=== PATIENT | male | born 1985 | race Native Hawaiian/Other Pacific Islander ===

== ENCOUNTER 2018-07-29 21:49 | Emergency (ER) | payer BC ==
[2018-07-29 22:34] VITALS: RESP 18
--- NOTE | 2018-07-29 23:22 | ED PDOC ---
HPI: Male Pain Chief Complaint (Provider): testicular pain History Per: Patient History/Exam Limitations: no limitations Onset/Duration Of Symptoms: Days (3) Current Symptoms Are (Timing): Still Present Quality Of Discomfort: "Pain" Additional Complaint(s): 33 y/o male presents for evaluation of right testicular pain x 3 days. Associated swelling. Patient states pain worse when standing, relieved when laying down. Associated right groin pain and subjective fevers. Denies vomiting, cough, chest pain, abdominal pain, urinary symptoms, penile pain/discharge. <Merissa Mayes - Last Filed: 07/30/18 03:12> <Brandon Dorado - Last Filed: 07/30/18 05:53> Time Seen by Provider: 07/29/18 22:46 Chief Complaint (Nursing): Abdominal Pain Past Medical History Reviewed: Historical Data, Nursing Documentation, Vital Signs Vital Signs: Last Vital Signs Temp 99.1 F 07/29/18 22:30 Pulse 123 H 07/29/18 22:30 Resp 18 07/29/18 22:30 BP 114/73 07/29/18 22:30 Pulse Ox 97 07/29/18 22:30 - Medical History PMH: No Chronic Diseases - Surgical History Surgical History: No Surg Hx - Family History Family History: States: No Known Family Hx <Merissa Mayes - Last Filed: 07/30/18 03:12> Vital Signs: Last Vital Signs Temp 98.3 F 07/30/18 03:53 Pulse 101 H 07/30/18 03:53 Resp 18 07/30/18 03:53 BP 101/66 07/30/18 03:53 Pulse Ox 99 07/30/18 03:53 <Brandon Dorado - Last Filed: 07/30/18 05:53> - Home Medications Home Medications: Ambulatory Orders Medication Instructions Recorded Levofloxacin [Levaquin] 500 mg PO DAILY #9 tablet 07/30/18 RX: Ibuprofen [Motrin Tab] 1 tab PO Q6 PRN #20 tab 07/30/18 - Allergies Allergies/Adverse Reactions: Allergies Allergy/AdvReac Type Severity Reaction Status Date / Time No Known Allergies Allergy Verified 07/29/18 23:19 Review of Systems ROS Statement: Except As Marked, All Systems Reviewed And Found Negative Genitourinary Male: Positive for: Scrotal Pain (right) <Merissa Mayes C - Last Filed: 07/30/18 03:12> Physical Exam - Reviewed Nursing Documentation Reviewed: Yes Vital Signs Reviewed: Yes - Physical Exam Appears: Positive for: Well, Non-toxic, No Acute Distress Head Exam: Positive for: ATRAUMATIC, NORMAL INSPECTION, NORMOCEPHALIC Skin: Positive for: Normal Color Eye Exam: Positive for: Normal appearance ENT: Positive for: Normal ENT Inspection Cardiovascular/Chest: Positive for: Regular Rate, Rhythm Respiratory: Positive for: Normal Breath Sounds Gastrointestinal/Abdominal: Positive for: Normal Exam, Bowel Sounds, Soft. Negative for: Tenderness Male Genital Exam: Positive for: inguinal tenderness (right), scrotum tenderness (R) (with +swelling), testicular tenderness (R) (upper aspect. + right Prehn's ), other (exam tank cooper Jeanie Jara RN). Negative for: epididymal tenderness, urethral discharge Back: Positive for: Normal Inspection Extremity: Positive for: Normal ROM Neurologic/Psych: Positive for: Alert, Oriented (x3) <Merissa Mayes C - Last Filed: 07/30/18 03:12> - Laboratory Results Result Diagrams: 07/29/18 23:34 07/29/18 23:34 - ECG O2 Sat by Pulse Oximetry: 97 - Progress ED Course And Treament: -cbc -cmp -urinalysis -urine c&s -gc/chlamydia -testes u/s Ultrasound of the testicles. Indication: Right testicular pain and swelling for 3 days, fever and swelling. Technique: Real-time ultrasound images with evaluation. Findings: Normal right testicle measuring 3.1x3x1.9 cm. Homogeneous right testicle. Normal right testicular flow. Increase in the size of the right epididymis with increased vascularity on color Doppler exam. It measures 4x1.2 cm. Left testicle is normal measuring 3.6x2.0x1.6 cm. Normal left epididymis. Impression: Acute right epididymitis IV rocephin, PO Levaquin given in ED Patient educated on findings, discharged with rx Levaquin, Naproxen Advised follow up with Urologist within 2-3 days Ice, scrotal support Return precautions given <Merissa Mayes C - Last Filed: 07/30/18 03:12> - Laboratory Results Result Diagrams: 07/29/18 23:34 07/29/18 23:34 Lab Results: Total Bilirubin 1.0 mg/dl (0.2-1.3) 07/29/18 23:34 AST 14 U/L (17-59) L 07/29/18 23:34 ALT 18 U/L (21-72) L 07/29/18 23:34 Alkaline Phosphatase 133 U/L (38-126) H 07/29/18 23:34 Total Protein 8.3 G/DL (6.3-8.2) H 07/29/18 23:34 Albumin 4.6 g/dL (3.5-5.0) 07/29/18 23:34 Globulin 3.7 gm/dL (2.2-3.9) 07/29/18 23:34 Albumin/Globulin Ratio 1.2 (1.0-2.1) 07/29/18 23:34 Urine Color Sybil (YELLOW) 07/30/18 01:00 Urine Clarity Turbid (Clear) 07/30/18 01:00 Urine pH 6.0 (5.0-8.0) 07/30/18 01:00 Ur Specific [place] 1.038 (1.003-1.030) H 07/30/18 01:00 Urine Protein >=500 mg/dL (NEGATIVE) 07/30/18 01:00 Urine Glucose (UA) >=500 mg/dL (NEGATIVE) 07/30/18 01:00 Urine Ketones 80 mg/dL (NEGATIVE) 07/30/18 01:00 Urine Blood Moderate (NEGATIVE) 07/30/18 01:00 Urine Nitrate Positive (NEGATIVE) H 07/30/18 01:00 Urine Bilirubin Moderate (NEGATIVE) 07/30/18 01:00 Urine Urobilinogen 4.0 mg/dL (0.2-1.0) 07/30/18 01:00 Ur Leukocyte Esterase Mod Brooke/uL (Negative) 07/30/18 01:00 Urine RBC (Auto) 55 /hpf (0-3) H 07/30/18 01:00 Urine Microscopic WBC 1622 /hpf (0-5) H 07/30/18 01:00 Ur Squamous Epith Cells 1 /hpf (0-5) 07/30/18 01:00 Urine Bacteria Occ (<OCC) H 07/30/18 01:00 <Brandon Dorado - Last Filed: 07/30/18 05:53> Disposition - Patient ED Disposition Is Patient to be Admitted: No Counseled Patient/Family Regarding: Studies Performed, Diagnosis, Need For Followup, Rx Given - Disposition Disposition Time: 03:13 <Merissa Mayes - Last Filed: 07/30/18 03:12> <Brandon Dorado - Last Filed: 07/30/18 05:53> - Clinical Impression Clinical Impression: Acute epididymitis - Disposition Referrals: [facility] [Outside] Armando iPzano MD [Medical Doctor] - Condition: IMPROVED Prescriptions: RX: Ibuprofen [Motrin Tab] 1 tab PO Q6 PRN #20 tab PRN Reason: Pain, Moderate (4-7) Levofloxacin [Levaquin] 500 mg PO DAILY #9 tablet Instructions: Epididymitis Forms: [facility] ([employer]), [facility] ED School/Work Excuse
[2018-07-29] MEDS: Sodium Chloride 0.9% 1,000 ML IV STA (23:38)
[2018-07-29 23:43] LABS: BASO % 0.2 % (0.0-2.0); EOS % 0.1 % (0.0-4.0); HEMOGLOBIN 13.5 g/dL (12.0-18.0); LYMPH % 6.4 % (20.0-40.0); MEAN CELL VOLUME 81.4 fl (80.0-94.0); MEAN CORPUSCULAR HEMOGLOBIN 26.7 pg (27.0-31.0); MEAN CORPUSCULAR HGB CONC 32.8 g/dL (33.0-37.0); MEAN PLATELET VOLUME 7.1 fl (7.2-11.7); MONO # 1.4 K/uL (0.0-0.8); MONO % 8.5 % (0.0-10.0); NEUT # 13.6 K/uL (1.8-7.0); NEUT % 84.8 % (50.0-75.0); PLATELET COUNT 206 K/uL (130-400); RBC 5.06 Mil/uL (4.40-5.90); RED CELL DISTRIBUTION WIDTH 13.5 % (11.5-14.5)
[2018-07-29 23:52] LABS: ALB/GLOB RATIO 1.2 (1.0-2.1); ALBUMIN 4.6 g/dL (3.5-5.0); ALT/SGPT 18 U/L (21-72); AST/SGOT 14 U/L (17-59); BLOOD UREA NITROGEN 11 mg/dl (9-20); CALCIUM 9.5 mg/dL (8.4-10.2); GFR NON-AFRICAN AMERICAN > 60
[2018-07-30] MEDS ORDERED: cefTRIAXone (Rocephin) 1 gm Inj ONE (01:25)
[2018-07-30 01:28] LABS: SQUAMOUS EPITHIAL 1 /hpf (0-5); URINE BACTERIA OCC (<OCC); URINE BILIRUBIN MODERATE (NEGATIVE); URINE BLOOD MODERATE (NEGATIVE); URINE CLARITY TURBID (Clear); URINE COLOR AMBER (YELLOW); URINE GLUCOSE (UA) >=500 mg/dL (NEGATIVE); URINE LEUKOCYTE ESTERASE MOD Leu/uL (Negative); URINE PROTEIN >=500 mg/dL (NEGATIVE)
[2018-07-30 01:46] LABS: ANISOCYTOSIS SLIGHT; BANDS 2 % (0-2); LYMPHOCYTE 10 % (20-50); MONOCYTE 6 % (0-10); MYELOCYTE 1 % (0-0); NEUTROPHIL 81 % (42-75); PLATELET ESTIMATE NORMAL (NORMAL); TOTAL CELLS COUNTED 100
[2018-07-30 01:47] LABS: LARGE PLATELETS PRESENT; SPHEROCYTES SLIGHT
[2018-07-30] MEDS: levoFLOXacin 500 MG TAB PO STA (01:50)
[2018-07-30 02:24] VITALS: BP 101/66; PULSE 101; TEMP 98.3
[2018-07-30] MEDS: Sodium Chloride 0.9% 1,000 ML IV STA (03:17)
[2018-07-30 03:54] VITALS: O2SAT 99
--- NOTE | 2018-07-30 14:14 | US ---
Date of service: 07/29/2018 HISTORY: right testicular pain/swelling TECHNIQUE: Realtime sonography through the scrotum with color and doppler flow. COMPARISON: None Available. FINDINGS: RIGHT TESTICLE: Measures 1.9 x 3 x 3.1 cm. Normal echotexture and flow. RIGHT EPIDIDYMIS: Epididymal head measures 1.5 x 2 x 4 cm. Markedly enlarged, heterogeneous right epididymis with increased flow consistent with acute epididymitis. LEFT TESTICLE: Measures 1.6 x 2.9 x 3.6 cm. Normal echotexture and flow. LEFT EPIDIDYMIS: Epididymal head measures 0.9 x 2.4 cm. Grossly unremarkable appearance with normal flow. HYDROCELE: None. VARICOCELE: None. OTHER FINDINGS: None. IMPRESSION: Markedly enlarged, heterogeneous right epididymal head. Intense hypervascularity. Findings consistent with acute epididymitis. Negative study for testicular torsion, mass or other pathologic process. Concordant findings (preliminary report) provided by [facility] [facility].
== END 2018-07-30 03:16 | disposition home or self-care (01) ==
LOC: H.ER 21:49
DX: N45.1 Epididymitis (principal)
CPT/HCPCS: 80053; 81003; 83605; 85025; 87040; 87086; 87491; 87591; 93975; 96361; 96365; 96375; 99283; J0696; J1885; J7030

== ENCOUNTER 2018-08-22 20:51 | Inpatient (IN) | payer BC ==
[2018-08-22] MEDS ORDERED: Piperacillin/Tazobact 3.375 GM in Sodium Chloride 0.9% 100 ML IV STA (21:08)
[2018-08-22] MEDS ORDERED: Sodium Chloride 0.9% 1,000 ML IV STA (21:09)
[2018-08-22] MEDS ORDERED: Lactated Ringer's 1,000 ML IV STA ×2 (21:10)
--- NOTE | 2018-08-22 21:21 | ED PDOC ---
HPI: General Adult Time Seen by Provider: 08/22/18 21:20 Chief Complaint (Nursing): Male Genitourinary Chief Complaint (Provider): genital discomfort History Per: Patient (33 y/o male here h/o epididymitis ongoing despite treatment with Levaquin 1 month ago and then bactrim 10 days ago. States he has 5 tablets left but notes increased swelling and pain in different region. NO fevers/chills. Was seen by Dr. Castro urology 10 days ago.) Past Medical History Reviewed: Historical Data, Nursing Documentation, Vital Signs Vital Signs: Last Vital Signs Temp 98.1 F 08/22/18 20:53 Pulse 120 H 08/22/18 20:53 Resp 16 08/22/18 20:53 BP 125/46 L 08/22/18 20:53 Pulse Ox 100 08/22/18 20:53 - Family History Family History: States: No Known Family Hx - Home Medications Home Medications: Ambulatory Orders Medication Instructions Recorded Ibuprofen [Motrin Tab] 1 tab PO PRN PRN 08/22/18 Sulfamethoxazole/Trimethoprim 1 each PO BID 08/22/18 [Sulfamethoxazole-Tmp Ss Tablet] - Allergies Allergies/Adverse Reactions: Allergies Allergy/AdvReac Type Severity Reaction Status Date / Time No Known Allergies Allergy Verified 08/22/18 20:56 Review of Systems ROS Statement: Except As Marked, All Systems Reviewed And Found Negative Genitourinary Male: Positive for: Scrotal Pain Physical Exam - Reviewed Nursing Documentation Reviewed: Yes Vital Signs Reviewed: Yes - Physical Exam Appears: Positive for: Well, Non-toxic, No Acute Distress Head Exam: Positive for: ATRAUMATIC, NORMAL INSPECTION, NORMOCEPHALIC Skin: Positive for: Normal Color, Warm, DRY Eye Exam: Positive for: EOMI, Normal appearance, PERRL ENT: Positive for: Normal ENT Inspection Neck: Positive for: Normal, Painless ROM Cardiovascular/Chest: Positive for: Regular Rate, Rhythm Respiratory: Positive for: CNT, Normal Breath Sounds Gastrointestinal/Abdominal: Positive for: Normal Exam, Soft Male Genital Exam: Positive for: other (erythema noted generalized perineal region involving inguinal fold. (+) moderate scrotal/perineal swelling. Small region of fluctuance noted with no drainage.) Back: Positive for: Normal Inspection Extremity: Positive for: Normal ROM Neurological/Psych: Positive for: Awake, Alert, Normal Tone - Laboratory Results Result Diagrams: 08/22/18 21:25 08/22/18 21:25 - ECG O2 Sat by Pulse Oximetry: 100 - Progress ED Course And Treament: zosyn 3.375gm iv Vancomycin 1 gm iv morphine 2 mg iv LR ordered d/w surg resident d/w Dr. Castro who states probably epididymitis with scrotal abscess. Dr. Castro out of town unable to see patient in ED today. d/w Dr. Vogt. We will evaluate with US and CT for abscess/cellulitis and r/o Fornier's gangrene. Paitent to be NPO after midnight and go to OR tomorrow. Lactate noted 2.9. Repeat lactate ordered for 3 hours. Elevated BS 330. Repeat accucheck ordered after hydration. Medical Decision Making Medical Decision Makin:09 CT Abdomen & Pelvis w/contrast FINDINGS: LUNG BASES: There are clustered reticulonodular opacities in the right lower lobe suggesting an infectious process. LIVER: Unremarkable. GALLBLADDER AND BILE DUCTS: The gallbladder appears within normal limits. No radioopaque gallstones are seen. No biliary ductal dilatation is evident. PANCREAS: Unremarkable. SPLEEN: The spleen is enlarged measuring 13.8 cm anteroposterior. ADRENAL GLANDS: Unremarkable. KIDNEYS, URETERS, AND BLADDER: The kidneys appear within normal limits. There is no hydronephrosis or hydroureter. No urinary calculi are seen. STOMACH AND BOWEL: Unremarkable appearance of the stomach and bowel. No evidence of bowel obstruction. No evidence suggesting enteritis or colitis. APPENDIX: Normal appendix is present in the right lower quadrant. PERITONEUM: No free fluid. No free air. LYMPH NODES: No lymphadenopathy is evident. REPRODUCTIVE: There is a complex, multiloculated fluid collection at the anterior scrotum. This may represent hydrocele. However, it is difficult to exclude the possibility of scrotal abscess. Please correlate clinically and if indicated this can be further evaluated with scrotal sonogram. There is substantial fluid in the perineal region which may represent simple edema although concerning for scrotal cellulitis. VASCULATURE: No evidence of abdominal aortic aneurysm. BONES: Minimal degenerative spine changes. IMPRESSION: 1. There are clustered reticulonodular opacities in the right lower lobe suggesting an infectious process. 2. The spleen is enlarged measuring 13.8 cm anteroposterior. 3. There is a complex, multiloculated fluid collection at the anterior scrotum. This may represent hydrocele. However, it is difficult to exclude the possibility of scrotal abscess. Please correlate clinically and if indicated this can be further evaluated with scrotal sonogram. 4. There is substantial fluid in the perineal region which may represent simple edema although concerning for scrotal cellulitis. 5. These findings are being telephoned to the referring clinicians at the time of this interpretation. Disposition - Clinical Impression Clinical Impression: Abscess, Cellulitis, Cellulitis of scrotum, Hyperglycemia - Patient ED Disposition Is Patient to be Admitted: Yes - Disposition Disposition Time: 21:52 Condition: FAIR - Pt Status Changed To: Hospital Disposition Of: Inpatient - Admit Certification Admit to Inpatient:: After my assessment, the patient will require hospitalization for at least two midnights. This is because of the severity of symptoms shown, intensity of services needed, and/or the medical risk in this patient being treated as an outpatient.
[2018-08-22] MEDS ORDERED: Piperacillin/Tazobact 3.375 gm Inj IVPB ONE (21:37)
[2018-08-22] MEDS ORDERED: Vancomycin 1 g Inj ONE (21:38)
[2018-08-22 21:42] LABS: BASO % 0.2 % (0.0-2.0); EOS # 0.1 K/uL (0.0-0.7); EOS % 0.6 % (0.0-4.0); HEMOGLOBIN 12.6 g/dL (12.0-18.0); INR 1.2; LYMPH # 1.1 K/uL (1.0-4.3); LYMPH % 4.7 % (20.0-40.0); MEAN CELL VOLUME 79.8 fl (80.0-94.0); MEAN CORPUSCULAR HEMOGLOBIN 25.9 pg (27.0-31.0); MEAN CORPUSCULAR HGB CONC 32.4 g/dL (33.0-37.0); MEAN PLATELET VOLUME 6.4 fl (7.2-11.7); MONO # 1.4 K/uL (0.0-0.8); MONO % 6.2 % (0.0-10.0); NEUT # 20.1 K/uL (1.8-7.0); NEUT % 88.3 % (50.0-75.0); PLATELET COUNT 362 K/uL (130-400); PROTHROMBIN TIME 13.4 Seconds (9.8-13.1); RBC 4.88 Mil/uL (4.40-5.90); RED CELL DISTRIBUTION WIDTH 14.4 % (11.5-14.5); WHITE BLOOD COUNT 22.7 K/uL (4.8-10.8)
[2018-08-22 21:45] LABS: PARTIAL THROMBOPLASTIN TIME 30.2 Seconds (25.6-37.1)
[2018-08-22 22:01] LABS: ALB/GLOB RATIO 0.9 (1.0-2.1); ALBUMIN 3.7 g/dL (3.5-5.0); ALT/SGPT 42 U/L (21-72); AST/SGOT 30 U/L (17-59); BLOOD UREA NITROGEN 9 mg/dl (9-20); CALCIUM 9.5 mg/dL (8.4-10.2); GFR NON-AFRICAN AMERICAN > 60
[2018-08-22] MEDS ORDERED: Morphine 4 MG/ML VIAL IVP STA (22:05)
[2018-08-22] MEDS ORDERED: Sodium Chloride 0.9% 50 ML IV ONE (22:11)
[2018-08-22] MEDS ORDERED: Iohexol 300 100 ML IJ ONE (22:11)
[2018-08-22 22:38] LABS: BANDS 13 % (0-2); EOSINOPHIL 1 % (0-7); LYMPHOCYTE 4 % (20-50); METAMYELOCYTE 2 % (0-0); MONOCYTE 6 % (0-10); NEUTROPHIL 74 % (42-75); TOTAL CELLS COUNTED 100
[2018-08-22 22:39] LABS: PLATELET ESTIMATE NORMAL (NORMAL)
[2018-08-22 22:40] LABS: POLYCHROMIC SLIGHT; TOXIC GRANULATION PRESENT
[2018-08-22] MEDS ORDERED: Morphine 4 MG/ML VIAL ONE (23:14)
--- NOTE | 2018-08-22 23:19 | CP.PCM.CON ---
History of Present Illness - History of Present Illness History of Present Illness: General Surgery Consult Note for Dr. Watts Reason for consult: Scrotal/perineal abscess and cellulitis 33 M with no significant PMH presents to [facility] ED for complaint of increasing scrotal swelling/pain and perineal pain. Patient was seen immediately in the ED. Patient states that his symptoms began 3-4 ago. He came to the ED on 07/29 and was diagnosed with Epididymitis via US. Patient was sent home with oral antibiotics and instructed to follow up with Urology. Patient saw urologist as outpatient about a weeks later where he was given more antibiotics and pain medication. He reports that his symptom improved slightly but did not resolve and worsened over last 3 days. He noticed that he had developed severe swelling and pain in scrotum and perineum. Patient reports difficulty sleeping and sitting down because certain positions exacerbate the pain. CT abd/pelvis and Scrotal US revealed fluid collections in scrotum and perineum as well as cellulitic changes and possible hydrocele (see full report). Admits to subjective fever/chills and pain with defecation. Denies cp, SOB, abd pain, n/v/d, constipation, numbness/tingling, drainage, incontinence. PMH: denies PSH: denies ALL: NKDA Social: quit smoking 1 month ago - 10+ pack yr history, denies EtOH and illicit drug use Review of Systems - Review of Systems All systems: reviewed and no additional remarkable complaints except (as per HPI) Past Patient History - Past Social History Smoking Status: Never Smoked - PSYCHIATRIC Hx Psychophysiologic Disorder: No Hx Substance Use: No - SURGICAL HISTORY Hx Surgeries: No - ANESTHESIA Hx Anesthesia: No Meds Allergies/Adverse Reactions: Allergies Allergy/AdvReac Type Severity Reaction Status Date / Time No Known Allergies Allergy Verified 08/22/18 20:56 Physical Exam - Constitutional Appears: No Acute Distress - Head Exam Head Exam: ATRAUMATIC, NORMOCEPHALIC - Eye Exam Eye Exam: EOMI, Normal appearance Pupil Exam: PERRL - ENT Exam ENT Exam: Mucous Membranes Moist - Neck Exam Neck exam: Positive for: Full Rom - Respiratory Exam Respiratory Exam: NORMAL BREATHING PATTERN - Cardiovascular Exam Cardiovascular Exam: Tachycardia - GI/Abdominal Exam GI & Abdominal Exam: Normal Bowel Sounds, Soft. absent: Tenderness - Rectal Exam Rectal Exam: Deferred (due to pain) - Exam Exam: Scrotal Swelling, Testicular Tenderness Additional comments: erythema in perineal region involving inguinal fold, moderate scrotal/perineal swelling, Area of induration and fluctuance noted with no drainage - Extremities Exam Extremities exam: Positive for: normal capillary refill, pedal pulses present. Negative for: calf tenderness - Back Exam Back exam: absent: CVA tenderness (L), CVA tenderness (R) - Neurological Exam Neurological exam: Alert, CN II-XII Intact, Oriented x3 - Psychiatric Exam Psychiatric exam: Normal Affect, Normal Mood - Skin Skin Exam: Dry, Warm Results - Vital Signs Recent Vital Signs: Last Vital Signs Temp 98.1 F 08/22/18 20:53 Pulse 120 H 08/22/18 20:53 Resp 16 08/22/18 20:53 BP 125/46 L 08/22/18 20:53 Pulse Ox 100 08/22/18 23:16 - Labs Result Diagrams: 08/22/18 21:25 08/22/18 21:25 Labs: Laboratory Results - last 24 hr 08/22/18 08/22/18 08/22/18 21:25 21:25 21:25 WBC 22.7 H RBC 4.88 Hgb 12.6 Hct 39.0 MCV 79.8 L MCH 25.9 L MCHC 32.4 L RDW 14.4 Plt Count 362 D MPV 6.4 L Neut % (Auto) 88.3 H Lymph % (Auto) 4.7 L [place] % (Auto) 6.2 Eos % (Auto) 0.6 Baso % (Auto) 0.2 Neut # (Auto) 20.1 H Lymph # (Auto) 1.1 [place] # (Auto) 1.4 H Eos # (Auto) 0.1 Baso # (Auto) 0.0 Neutrophils % (Manual) 74 Band Neutrophils % 13 H* Lymphocytes % (Manual) 4 L Monocytes % (Manual) 6 Eosinophils % (Manual) 1 Metamyelocytes % 2 H Toxic Granulation Present Platelet Estimate Normal Polychromasia Slight PT INR APTT Sodium 135 Potassium 4.4 Chloride 99 Carbon Dioxide 18 L Anion Gap 22 H BUN 9 Creatinine 1.2 Est GFR ( Amer) > 60 Est GFR (Non-Af Amer) > 60 Random Glucose 330 H Lactic Acid 2.9 H Calcium 9.5 Total Bilirubin 0.4 AST 30 ALT 42 Alkaline Phosphatase 243 H D Total Protein 7.7 Albumin 3.7 Globulin 4.0 H Albumin/Globulin Ratio 0.9 L 08/22/18 21:25 WBC RBC Hgb Hct MCV MCH MCHC RDW Plt Count MPV Neut % (Auto) Lymph % (Auto) [place] % (Auto) Eos % (Auto) Baso % (Auto) Neut # (Auto) Lymph # (Auto) [place] # (Auto) Eos # (Auto) Baso # (Auto) Neutrophils % (Manual) Band Neutrophils % Lymphocytes % (Manual) Monocytes % (Manual) Eosinophils % (Manual) Metamyelocytes % Toxic Granulation Platelet Estimate Polychromasia PT 13.4 H INR 1.2 APTT 30.2 Sodium Potassium Chloride Carbon Dioxide Anion Gap BUN Creatinine Est GFR ( Amer) Est GFR (Non-Af Amer) Random Glucose Lactic Acid Calcium Total Bilirubin AST ALT Alkaline Phosphatase Total Protein Albumin Globulin Albumin/Globulin Ratio - Imaging and Cardiology CT scan - abdomen Status: Image reviewed by me, Report reviewed by me Additional comment: CT abd/pelvis US scrotum as reviewed Assessment & Plan - Assessment and Plan (Free Text) Assessment: 33 M who presents with Scrotal/perineal abscess and cellulitis Plan: -NPO -IVF -IV abx -Pain control -Urology planning to take to OR this morning -Discussed with Dr. Mac Kiran PGY2 - Date & Time Date: 08/23/18 Time: 00:10
[2018-08-23] MEDS ORDERED: Lactated Ringer's 1,000 ML IV STA (00:37)
[2018-08-23 00:43] LABS: SQUAMOUS EPITHIAL 1 /hpf (0-5); URINE BACTERIA RARE (<OCC); URINE BILIRUBIN NEGATIVE (NEGATIVE); URINE BLOOD NEGATIVE (NEGATIVE); URINE CLARITY SLIGHTY-CLOUDY (Clear); URINE COLOR YELLOW (YELLOW); URINE GLUCOSE (UA) >=500 mg/dL (NEGATIVE); URINE HYALINE CAST 0-2 /hpf (0-2); URINE LEUKOCYTE ESTERASE NEG Leu/uL (Negative); URINE PROTEIN 30 mg/dL (NEGATIVE)
[2018-08-23] MEDS: Lactated Ringer's 1,000 ML IV SCH ×5 (01:51→17:54)
[2018-08-23] MEDS: Piperacillin/Tazobact 3.375 GM in Sodium Chloride 0.9% 100 ML IVPB SCH ×2 (04:28→10:24)
[2018-08-23] MEDS ORDERED: Influenza Vaccine 60 mcg/0.5 mL SYR (4YR UP) IM ONE (06:00)
[2018-08-23 06:34] LABS: EOS # 0.1 K/uL (0.0-0.7); EOS % 0.3 % (0.0-4.0); HEMOGLOBIN 10.4 g/dL (12.0-18.0); LYMPH # 1.1 K/uL (1.0-4.3); LYMPH % 4.9 % (20.0-40.0); MEAN CELL VOLUME 78.6 fl (80.0-94.0); MEAN CORPUSCULAR HEMOGLOBIN 26.1 pg (27.0-31.0); MEAN CORPUSCULAR HGB CONC 33.3 g/dL (33.0-37.0); MEAN PLATELET VOLUME 6.4 fl (7.2-11.7); MONO # 1.6 K/uL (0.0-0.8); MONO % 7.4 % (0.0-10.0); NEUT # 19.1 K/uL (1.8-7.0); NEUT % 87.4 % (50.0-75.0); RBC 3.98 Mil/uL (4.40-5.90); WHITE BLOOD COUNT 21.9 K/uL (4.8-10.8)
[2018-08-23 06:35] LABS: INR 1.3; PROTHROMBIN TIME 14.6 Seconds (9.8-13.1)
[2018-08-23 06:38] LABS: PARTIAL THROMBOPLASTIN TIME 28.8 Seconds (25.6-37.1)
[2018-08-23 06:55] LABS: ALB/GLOB RATIO 0.9 (1.0-2.1); ALT/SGPT 35 U/L (21-72); AST/SGOT 23 U/L (17-59); BLOOD UREA NITROGEN 6 mg/dl (9-20); GFR NON-AFRICAN AMERICAN > 60
[2018-08-23] MEDS ORDERED: Propofol 10 mg/ml Inj (20 ML) ONE (07:38)
[2018-08-23] MEDS ORDERED: Succinylcholine Chloride 20 mg/ml Syr (5 ml) IV ONE (07:39)
[2018-08-23] MEDS ORDERED: Midazolam 2 MG/2 ML VIAL ONE (07:39)
[2018-08-23] MEDS ORDERED: Phenylephrine 10 mg/ml Inj ONE (07:52)
[2018-08-23] MEDS ORDERED: HYDROmorphone 0.5 mg/0.5 ml ISec IVP PRN (07:55)
[2018-08-23] MEDS ORDERED: Lactated Ringer's 1,000 ML IV ONE (08:07)
--- NOTE | 2018-08-23 08:20 | US ---
Date of service: 08/22/2018 HISTORY: evaluation for cellulitis/abscess scrotal region TECHNIQUE: Realtime sonography through the scrotum with color and doppler flow. COMPARISON: None Available. FINDINGS: RIGHT TESTICLE: Measures 3.3 x 2.1 x 2.4 cm. No intratesticular mass is noted. There may be some mild overall increased vascularity of the right testicle which may suggest mild orchitis. RIGHT EPIDIDYMIS: Epididymal head measures 1.1 x 0.6 x 0.6 cm. Right epididymal head is normal in size. There may be some mild increased thickening or vascularity of the right epididymal body and tail. LEFT TESTICLE: Measures 3.5 x 2.3 x 2.4 cm. No intratesticular mass identified. There may be some slight increased vascularity of the left testicle although to a lesser degree than the right testicle. LEFT EPIDIDYMIS: Epididymal head measures 0.9 x 0.6 x 0.5 cm. Grossly unremarkable appearance with normal flow. HYDROCELE: There is evidence of complex heterogeneous hypervascular soft tissue within the inferior aspect of the scrotum inferior to both testicles but slightly greater on the right. This extratesticular process more than likely reflects an infectious process. Underlying scrotal abscess in this region cannot be excluded. There is associated scrotal wall thickening. VARICOCELE: No appreciable varicocele. OTHER FINDINGS: None. IMPRESSION: Heterogeneous hypervascular soft tissue within the inferior aspect of the scrotum, and greater on the right. This more than likely reflects an infectious process. Pyocele within this area or small underlying abscess cannot be excluded. There is associated scrotal wall thickening inferiorly. There may also be some mild increased vascularity of the right greater than left testicle which may suggest secondary orchitis. There is also some mild increased vascularity of the right epididymal body. This agrees with preliminary report.
[2018-08-23] MEDS ORDERED: Esmolol 100 mg/10ml Inj IV ONE (08:22)
[2018-08-23] MEDS ORDERED: Dexamethasone 4 mg/1 ml ONE (08:23)
[2018-08-23] MEDS: HYDROmorphone 0.5 mg/0.5 ml ISec IVP PRN (09:37)
[2018-08-23] MEDS ORDERED: HYDROmorphone 0.5 mg/0.5 ml ISec ONE (09:38)
--- NOTE | 2018-08-23 12:04 | CT ---
Date of service: 08/22/2018 PROCEDURE: CT Abdomen and Pelvis with contrast HISTORY: scrotal/perineal cellulitis COMPARISON: None. TECHNIQUE: Contrast dose: 95 mL Radiation dose: Total exam DLP = 485.2 mGy-cm. This CT exam was performed using one or more of the following dose reduction techniques: Automated exposure control, adjustment of the mA and/or kV according to patient size, and/or use of iterative reconstruction technique. FINDINGS: LOWER THORAX: Mild nonspecific reticular nodular changes seen posteriorly in the right lower lobe. A portion of this may represent tree-in-bud appearance. Correlation for MARY is suggested. LIVER: Unremarkable. No gross lesion or ductal dilatation. GALLBLADDER AND BILE DUCTS: Unremarkable. PANCREAS: Unremarkable. No gross lesion or ductal dilatation. SPLEEN: Spleen is noted to be mildly enlarged. ADRENALS: Unremarkable. No mass. KIDNEYS AND URETERS: Unremarkable. No hydronephrosis. No solid mass. VASCULATURE: Unremarkable. No aortic aneurysm. No aortic atherosclerotic calcification or mural plaque present. BOWEL: Unremarkable. No obstruction. No gross mural thickening. APPENDIX: Normal appendix. PERITONEUM: Unremarkable. No free fluid. No free air. LYMPH NODES: Unremarkable. No enlarged lymph nodes. BLADDER: Unremarkable. REPRODUCTIVE: Prostate gland is grossly normal in size. BONES: No fracture is seen. There may be an element of femoral acetabular impingement morphology of the hips. No spine fracture is seen. OTHER FINDINGS: There is evidence of moderate focal hydrocele and scrotal wall thickening as well as moderate adjacent inflammatory changes within the inferior perineal region. Scrotal abscess is not excluded but please see ultrasound testicle report of same day. No focal fluid collection in the perineal region to suggest abscess is noted. There is some additional thickening of the right spermatic cord region extending towards the right inguinal canal. Small bilateral inguinal lymph nodes are identified. A portion of the inflammatory changes also extends into the medial right and left thigh regions. IMPRESSION: Moderate scrotal wall and perineal inflammatory changes with mildly complex fluid in the inferior scrotal region. Additional inflammatory changes are noted in the right inguinal canal adjacent to the spermatic cord. Findings suggest moderate cellulitis. No air within the soft tissues is noted to suggest gas-forming organism. Early Tereza gangrene however cannot be excluded given the amount of inflammation. This agrees with preliminary report
--- NOTE | 2018-08-23 13:31 | CP.PCM.CON ---
History of Present Illness - History of Present Illness History of Present Illness: 33 M with no significant PMH presents to [facility] ED for complaint of increasing scrotal swelling/pain and perineal pain. Patient seates he came to the ED on 07/29 and was diagnosed with Epididymitis via US. Patient was sent home with oral Levofloxacin and instructed to follow up with Urology. Patient saw urologist as outpatient about a weeks later where he was given Bactrim He reports that his symptom improved slightly but did not resolve and worsened over last 3 days. He noticed that he had developed severe swelling and pain in scrotum and perineum. A CT was done and this am patient was taken to the OR for debridement and drainage of abscess ID consulted for antibiotic management PMH: denies PSH: denies ALL: NKDA Social: quit smoking 1 month ago - 10+ pack yr history, denies EtOH and illicit drug use Review of Systems - Review of Systems All systems: reviewed and no additional remarkable complaints except - Constitutional Constitutional: As Per HPI - EENT Eyes: absent: As Per HPI, Blind Spots, Blurred Vision, Change in Vision, Decreased Night Vision, Diplopia, Discharge, Dry Eye, Exophthalmos, Floaters, Irritation, Itchy Eyes, Loss of Peripheral Vision, Pain, Photophobia, Requires Corrective Lenses, Sees Flashes, Spots in Vision, Tunnel Vision, Other Visual D isturbances, Loss of Vision, Other Ears: absent: As Per HPI, Decreased Hearing, Ear Discharge, Ear Pain, Tinnitus, Abnormal Hearing, Disequilibrium, Dizziness, Other Nose/Mouth/Throat: absent: As Per HPI, Epistaxis, Nasal Congestion, Nasal Discharge, Nasal Obstruction, Nasal Trauma, Nose Pain, Post Nasal Drip, Sinus Pain, Sinus Pressure, Bleeding Gums, Change in Voice, Dental Pain, Dry Mouth, Dysphagia, Halitosis, Hoarsness, Lip Swelling, Mouth Lesions, Mouth Pain, Odynophagia, Sore Throat, Throat Swelling, Tongue Swelling, Facial Pain, Neck Pa in, Neck Mass, Other - Cardiovascular Cardiovascular: absent: As Per HPI, Acrocyanosis, Chest Pain, Chest Pain at Rest, Chest Pain with Activity, Claudication, Diaphoresis, Dyspnea, Dyspnea on Exertion, Edema, Irregular Heart Rhythm, Pain Radiating to Arm/Neck/Jaw, Leg Edema, Leg Ulcers, Lightheadedness, Orthopnea, Palpitations, Paroxysmal Nocturnal Dyspnea, Pedal Edema, Radiating Pain, Rapid Heart Rate, Slow Heart Rate, Syncope, Other - Respiratory Respiratory: absent: As Per HPI, Cough, Dyspnea, Hemoptysis, Dyspnea on Exertion, Wheezing, Snoring, Stridor, Pain on Inspiration, Chest Congestion, Excessive Mucous Production, Change in Mucous Color, Pain with Coughing, Other - Gastrointestinal Gastrointestinal: absent: As Per HPI, Abdominal Pain, Belching, Bloating, Change in Bowel Habits, Change in Stool Character, Coffee Ground Emesis, Constipation, Cramping, Diarrhea, Dyspepsia, Dysphagia, Early Satiety, Excessive Flatus, Fecal Incontinence, Heartburn, Hematemesis, Hematochezia, Loose Stools, Melena, Nausea, Odynophagia, Temesmus, Vomiting, Other - Genitourinary Genitourinary: As Per HPI - Musculoskeletal Musculoskeletal: absent: As Per HPI, Abnormal Gait, Arthralgias, Atrophy, Back Pain, Deformity, Joint Swelling, Limited Range of Motion, Loss of Height, Muscle Cramps, Muscle Weakness, Myalgias, Neck Pain, Numbness, Radiating Pain into Limb, Stiffness, Tingling, Other - Integumentary Integumentary: As Per HPI, Skin Pain, Wounds - Neurological Neurological: absent: As Per HPI, Abnormal Gait, Abnormal Hearing, Abnormal Movements, Abnormal Speech, Behavioral Changes, Burning Sensations, Confusion, Convulsions, Disequilibrium, Dizziness, Numbness, Focal Weakness, Frequent Falls, Headaches, Lack of Coordination, Loss of Vision, Memory Loss, Paresthesias, Radicular Pain, Restless Legs, Sensory Deficit, Syncope, Tingling, Tremor, Vertigo, Weakness, Other Visual Disturbances, Other - Psychiatric Psychiatric: absent: As Per HPI, Abnormal Sleep Pattern, Anhedonia, Anxiety, Auditory Hallucinations, Behavioral Changes, Change in Appetite, Change in Libido, Confusion, Depression, Difficulty Concentrating, Hallucinations, Homicidal Ideation, Hopelessness, Irritability, Memory Loss, Mood Swings, Panic Attacks, Paranoia, Suicidal Ideation, Visual Hallucinations, Tactile Hallucinations, Other - Endocrine Endocrine: absent: As Per HPI, Change in Body Appearance, Change in Libido, Cold Intolorance, Deepening of Voice, Excessive Sweating, Fatigue, Flushing, Heat Intolorance, Increase in Ring/Shoe/Hat Size, Palpitations, Polydipsia, Polyphagia, Polyuria, Other - Hematologic/Lymphatic Hematologic: absent: As Per HPI, Easy Bleeding, Easy Bruising, Lymphadenopathy, Other Past Patient History - Past Medical History & Family History Past Medical History?: Yes - Past Social History Smoking Status: Never Smoked - CARDIAC Hx Cardiac Disorders: No - PULMONARY Hx Respiratory Disorders: Yes Hx Asthma: Yes - NEUROLOGICAL Hx Neurological Disorder: No - HEENT Hx HEENT Problems: No - RENAL Hx Chronic Kidney Disease: No - ENDOCRINE/METABOLIC Hx Endocrine Disorders: No - HEMATOLOGICAL/ONCOLOGICAL Hx Blood Disorders: No Hx AIDS: No Hx Human Immunodeficiency Virus (HIV): No - INTEGUMENTARY Hx Dermatological Problems: No - MUSCULOSKELETAL/RHEUMATOLOGICAL Hx Musculoskeletal Disorders: No Hx Falls: No - GASTROINTESTINAL Hx Gastrointestinal Disorders: No - GENITOURINARY/GYNECOLOGICAL Hx Genitourinary Disorders: Yes Other/Comment: Epididymitis a month ago - PSYCHIATRIC Hx Psychophysiologic Disorder: No Hx Substance Use: No - SURGICAL HISTORY Hx Surgeries: No - ANESTHESIA Hx Anesthesia: No Meds Allergies/Adverse Reactions: Allergies Allergy/AdvReac Type Severity Reaction Status Date / Time No Known Allergies Allergy Verified 08/22/18 20:56 - Medications Medications: Current Medications Hydromorphone HCl (Dilaudid) 0.5 mg IVP Q4 PRN PRN Reason: Pain, severe (8-10) Last Admin: 08/23/18 09:37 Dose: 0.5 mg Hydromorphone HCl (Dilaudid) 0.5 mg IVP Q5M PRN PRN Reason: Pain, severe (8-10) Stop: 08/23/18 15:00 Lactated Ringer's (Lactated Ringer's) 1,000 mls @ 125 mls/hr IV .Q8H TERRI Last Admin: 08/23/18 10:19 Dose: 125 mls/hr Vancomycin HCl 1 gm/ Sodium (Chloride) 250 mls @ 166.667 mls/hr IVPB Q12 TERRI; Protocol Last Admin: 08/23/18 12:57 Dose: 166.667 mls/hr Piperacillin Sod/Tazobactam (Sod 3.375 gm/ Sodium Chloride) 100 mls @ 100 mls/hr IVPB Q6 TERRI; Protocol Last Admin: 08/23/18 10:24 Dose: 100 mls/hr Physical Exam - Constitutional Appears: Non-toxic, No Acute Distress, Chronically Ill - Head Exam Head Exam: ATRAUMATIC, NORMOCEPHALIC - Eye Exam Eye Exam: PERRL. absent: Scleral icterus Pupil Exam: NORMAL ACCOMODATION - ENT Exam ENT Exam: Mucous Membranes Dry, Normal External Ear Exam, Normal Oropharynx - Neck Exam Neck exam: Negative for: Lymphadenopathy, Thyromegaly - Respiratory Exam Respiratory Exam: Decreased Breath Sounds, Clear to Auscultation Bilateral - Cardiovascular Exam Cardiovascular Exam: REGULAR RHYTHM, +S1, +S2 - GI/Abdominal Exam GI & Abdominal Exam: Diminished Bowel Sounds, Distended, Soft. absent: Tenderness - Rectal Exam Rectal Exam: Deferred - Exam Exam: Scrotal Swelling, Testicular Tenderness. absent: NORMAL INSPECTION - Extremities Exam Extremities exam: Positive for: pedal pulses present. Negative for: calf tenderness, pedal edema, tenderness - Back Exam Back exam: absent: CVA tenderness (L), CVA tenderness (R) - Neurological Exam Neurological exam: Alert, CN II-XII Intact, Oriented x3, Reflexes Normal - Psychiatric Exam Psychiatric exam: Normal Mood - Skin Skin Exam: Dry Results - Vital Signs Recent Vital Signs: Last Vital Signs Temp 98.3 F 08/23/18 11:59 Pulse 112 H 08/23/18 11:59 Resp 18 08/23/18 11:59 BP 110/70 08/23/18 11:59 Pulse Ox 99 08/23/18 11:59 - Labs Result Diagrams: 08/23/18 04:30 08/23/18 04:30 Labs: Laboratory Results - last 24 hr 08/22/18 08/22/18 08/22/18 00:14 00:14 21:25 WBC 22.7 H RBC 4.88 Hgb 12.6 Hct 39.0 MCV 79.8 L MCH 25.9 L MCHC 32.4 L RDW 14.4 Plt Count 362 D MPV 6.4 L Neut % (Auto) 88.3 H Lymph % (Auto) 4.7 L [place] % (Auto) 6.2 Eos % (Auto) 0.6 Baso % (Auto) 0.2 Neut # (Auto) 20.1 H Lymph # (Auto) 1.1 [place] # (Auto) 1.4 H Eos # (Auto) 0.1 Baso # (Auto) 0.0 Neutrophils % (Manual) 74 Band Neutrophils % 13 H* Lymphocytes % (Manual) 4 L Monocytes % (Manual) 6 Eosinophils % (Manual) 1 Metamyelocytes % 2 H Toxic Granulation Present Platelet Estimate Normal Polychromasia Slight PT INR APTT Sodium Potassium Chloride Carbon Dioxide Anion Gap BUN Creatinine Est GFR ( Amer) Est GFR (Non-Af Amer) POC Glucose (mg/dL) Random Glucose Lactic Acid 1.5 Calcium Phosphorus Magnesium Total Bilirubin AST ALT Alkaline Phosphatase Total Protein Albumin Globulin Albumin/Globulin Ratio Urine Color Yellow Urine Clarity Slighty-cloudy Urine pH 6.0 Ur Specific [place] 1.016 Urine Protein 30 Urine Glucose (UA) >=500 Urine Ketones Negative Urine Blood Negative Urine Nitrate Negative Urine Bilirubin Negative Urine Urobilinogen 4.0 Ur Leukocyte Esterase Neg Urine RBC (Auto) 1 Urine Microscopic WBC 9 H Ur Squamous Epith Cells 1 Urine Bacteria Rare Hyaline Casts 0-2 Blood Type Blood Type Confirm Antibody Screen BBK History Checked 08/22/18 08/22/18 08/22/18 21:25 21:25 21:25 WBC RBC Hgb Hct MCV MCH MCHC RDW Plt Count MPV Neut % (Auto) Lymph % (Auto) [place] % (Auto) Eos % (Auto) Baso % (Auto) Neut # (Auto) Lymph # (Auto) [place] # (Auto) Eos # (Auto) Baso # (Auto) Neutrophils % (Manual) Band Neutrophils % Lymphocytes % (Manual) Monocytes % (Manual) Eosinophils % (Manual) Metamyelocytes % Toxic Granulation Platelet Estimate Polychromasia PT 13.4 H INR 1.2 APTT 30.2 Sodium 135 Potassium 4.4 Chloride 99 Carbon Dioxide 18 L Anion Gap 22 H BUN 9 Creatinine 1.2 Est GFR ( Amer) > 60 Est GFR (Non-Af Amer) > 60 POC Glucose (mg/dL) Random Glucose 330 H Lactic Acid 2.9 H Calcium 9.5 Phosphorus Magnesium Total Bilirubin 0.4 AST 30 ALT 42 Alkaline Phosphatase 243 H D Total Protein 7.7 Albumin 3.7 Globulin 4.0 H Albumin/Globulin Ratio 0.9 L Urine Color Urine Clarity Urine pH Ur Specific [place] Urine Protein Urine Glucose (UA) Urine Ketones Urine Blood Urine Nitrate Urine Bilirubin Urine Urobilinogen Ur Leukocyte Esterase Urine RBC (Auto) Urine Microscopic WBC Ur Squamous Epith Cells Urine Bacteria Hyaline Casts Blood Type Blood Type Confirm Antibody Screen BBK History Checked 08/22/18 08/22/1808/23/19 22:22 22:53 04:30 WBC 21.9 H RBC 3.98 L Hgb 10.4 L D Hct 31.3 L MCV 78.6 L MCH 26.1 L MCHC 33.3 RDW 14.0 Plt Count 301 MPV 6.4 L Neut % (Auto) 87.4 H Lymph % (Auto) 4.9 L [place] % (Auto) 7.4 Eos % (Auto) 0.3 Baso % (Auto) 0.0 Neut # (Auto) 19.1 H Lymph # (Auto) 1.1 [place] # (Auto) 1.6 H Eos # (Auto) 0.1 Baso # (Auto) 0.0 Neutrophils % (Manual) Band Neutrophils % Lymphocytes % (Manual) Monocytes % (Manual) Eosinophils % (Manual) Metamyelocytes % Toxic Granulation Platelet Estimate Polychromasia PT INR APTT Sodium Potassium Chloride Carbon Dioxide Anion Gap BUN Creatinine Est GFR ( Amer) Est GFR (Non-Af Amer) POC Glucose (mg/dL) Random Glucose Lactic Acid Calcium Phosphorus Magnesium Total Bilirubin AST ALT Alkaline Phosphatase Total Protein Albumin Globulin Albumin/Globulin Ratio Urine Color Urine Clarity Urine pH Ur Specific [place] Urine Protein Urine Glucose (UA) Urine Ketones Urine Blood Urine Nitrate Urine Bilirubin Urine Urobilinogen Ur Leukocyte Esterase Urine RBC (Auto) Urine Microscopic WBC Ur Squamous Epith Cells Urine Bacteria Hyaline Casts Blood Type B POSITIVE Blood Type Confirm B POSITIVE Antibody Screen Negative BBK History Checked No verified bt 08/23/18 08/23/18 08/23/18 04:30 04:30 05:41 WBC RBC Hgb Hct MCV MCH MCHC RDW Plt Count MPV Neut % (Auto) Lymph % (Auto) [place] % (Auto) Eos % (Auto) Baso % (Auto) Neut # (Auto) Lymph # (Auto) [place] # (Auto) Eos # (Auto) Baso # (Auto) Neutrophils % (Manual) Band Neutrophils % Lymphocytes % (Manual) Monocytes % (Manual) Eosinophils % (Manual) Metamyelocytes % Toxic Granulation Platelet Estimate Polychromasia PT 14.6 H INR 1.3 APTT 28.8 Sodium 135 Potassium 3.8 Chloride 100 Carbon Dioxide 18 L Anion Gap 21 H BUN 6 L Creatinine 1.2 Est GFR ( Amer) > 60 Est GFR (Non-Af Amer) > 60 POC Glucose (mg/dL) 199 H Random Glucose 200 H Lactic Acid Calcium 9.0 Phosphorus 2.4 L Magnesium 1.5 L Total Bilirubin 0.8 AST 23 ALT 35 Alkaline Phosphatase 175 H D Total Protein 6.3 Albumin 3.0 L Globulin 3.3 Albumin/Globulin Ratio 0.9 L Urine Color Urine Clarity Urine pH Ur Specific [place] Urine Protein Urine Glucose (UA) Urine Ketones Urine Blood Urine Nitrate Urine Bilirubin Urine Urobilinogen Ur Leukocyte Esterase Urine RBC (Auto) Urine Microscopic WBC Ur Squamous Epith Cells Urine Bacteria Hyaline Casts Blood Type Blood Type Confirm Antibody Screen BBK History Checked 08/23/18 10:41 WBC RBC Hgb Hct MCV MCH MCHC RDW Plt Count MPV Neut % (Auto) Lymph % (Auto) [place] % (Auto) Eos % (Auto) Baso % (Auto) Neut # (Auto) Lymph # (Auto) [place] # (Auto) Eos # (Auto) Baso # (Auto) Neutrophils % (Manual) Band Neutrophils % Lymphocytes % (Manual) Monocytes % (Manual) Eosinophils % (Manual) Metamyelocytes % Toxic Granulation Platelet Estimate Polychromasia PT INR APTT Sodium Potassium Chloride Carbon Dioxide Anion Gap BUN Creatinine Est GFR ( Amer) Est GFR (Non-Af Amer) POC Glucose (mg/dL) 212 H Random Glucose Lactic Acid Calcium Phosphorus Magnesium Total Bilirubin AST ALT Alkaline Phosphatase Total Protein Albumin Globulin Albumin/Globulin Ratio Urine Color Urine Clarity Urine pH Ur Specific [place] Urine Protein Urine Glucose (UA) Urine Ketones Urine Blood Urine Nitrate Urine Bilirubin Urine Urobilinogen Ur Leukocyte Esterase Urine RBC (Auto) Urine Microscopic WBC Ur Squamous Epith Cells Urine Bacteria Hyaline Casts Blood Type Blood Type Confirm Antibody Screen BBK History Checked Assessment & Plan (1) Abscess Status: Acute (2) Cellulitis of scrotum Status: Acute (3) Acute epididymitis Status: Acute - Assessment and Plan (Free Text) Assessment: 33 yo male admitted with fever , leukocytosis and lactic acidemia is s/p drainage of scrotal/ perineal abscess Broad spectrum antibiotics to cover for MRSA as well as anaerobes and gram negatives is indicated Await final culture reports , [id number] Will need continued wound care and IV rx in house for several days and depending on progress and cultures may eventually be switched to PO rx
[2018-08-23] MEDS: Aztreonam 1 GM in Sodium Chloride 0.9% 100 ML IVPB SCH (17:49)
[2018-08-23] MEDS: metroNIDAZOLE 500mg/100ml NS 100 ML IVPB SCH (19:02)
--- NOTE | 2018-08-23 22:32 | CP.PCM.PCO ---
Physician Communication Note - Physician Communication Note Physician Communication Note: ? reaction to zosyn- d/c'd cont Vanco/flagyl/azactam
[2018-08-24] MEDS: Lactated Ringer's 1,000 ML IV SCH ×3 (01:00→16:17)
[2018-08-24] MEDS: Aztreonam 1 GM in Sodium Chloride 0.9% 100 ML IVPB SCH ×3 (01:12→18:04)
[2018-08-24] MEDS: metroNIDAZOLE 500mg/100ml NS 100 ML IVPB SCH ×3 (02:00→16:19)
[2018-08-24] MEDS: HYDROmorphone 0.5 mg/0.5 ml ISec IVP PRN ×4 (02:15→20:09)
[2018-08-24 06:29] LABS: BASO % 0.1 % (0.0-2.0); EOS # 0.1 K/uL (0.0-0.7); EOS % 0.6 % (0.0-4.0); LYMPH # 1.8 K/uL (1.0-4.3); LYMPH % 9.3 % (20.0-40.0); MEAN CELL VOLUME 78.5 fl (80.0-94.0); MEAN CORPUSCULAR HEMOGLOBIN 25.7 pg (27.0-31.0); MEAN CORPUSCULAR HGB CONC 32.8 g/dL (33.0-37.0); MEAN PLATELET VOLUME 6.4 fl (7.2-11.7); MONO # 1.3 K/uL (0.0-0.8); MONO % 6.9 % (0.0-10.0); NEUT # 16.2 K/uL (1.8-7.0); NEUT % 83.1 % (50.0-75.0); RBC 3.5 Mil/uL (4.40-5.90); RED CELL DISTRIBUTION WIDTH 14.6 % (11.5-14.5); WHITE BLOOD COUNT 19.5 K/uL (4.8-10.8)
[2018-08-24 06:44] LABS: ALB/GLOB RATIO 0.9 (1.0-2.1); ALBUMIN 2.7 g/dL (3.5-5.0); ALT/SGPT 28 U/L (21-72); AST/SGOT 17 U/L (17-59); BLOOD UREA NITROGEN 12 mg/dl (9-20); CALCIUM 8.8 mg/dL (8.4-10.2); GFR NON-AFRICAN AMERICAN > 60
--- NOTE | 2018-08-24 11:02 | CP.PCM.PN ---
Subjective - Date & Time of Evaluation Date of Evaluation: 08/24/18 Time of Evaluation: 08:00 - Subjective Subjective: less pain and swelling no fever cultures pending Objective - Vital Signs/Intake and Output Vital Signs (last 24 hours): Temp Pulse Resp BP Pulse Ox 97.6 F 97 H 20 103/62 98 08/24/18 09:12 08/24/18 09:12 08/24/18 09:12 08/24/18 09:12 08/24/18 09:12 Intake and Output: 08/24/18 08/24/18 06:59 18:59 Intake Total 5200 Output Total 3300 Balance 1900 - Medications Medications: Current Medications Hydromorphone HCl (Dilaudid) 0.5 mg IVP Q4 PRN PRN Reason: Pain, severe (8-10) Last Admin: 08/24/18 10:19 Dose: 0.5 mg Lactated Ringer's (Lactated Ringer's) 1,000 mls @ 125 mls/hr IV .Q8H TERRI Last Admin: 08/24/18 10:21 Dose: 125 mls/hr Vancomycin HCl 1 gm/ Sodium (Chloride) 250 mls @ 166.667 mls/hr IVPB Q12 TERRI; Protocol Last Admin: 08/23/18 21:24 Dose: 166.667 mls/hr Metronidazole (Flagyl 500mg/100ml Ns) 100 mls @ 100 mls/hr IVPB Q8 TERRI; Protocol Last Admin: 08/24/18 10:23 Dose: 100 mls/hr Aztreonam 1 gm/ Sodium (Chloride) 100 mls @ 100 mls/hr IVPB Q8 TERRI; Protocol Last Admin: 08/24/18 08:21 Dose: 100 mls/hr - Labs Labs: 08/24/18 05:15 08/24/18 05:15 PT 14.6 Seconds (9.8-13.1) H 08/23/18 04:30 INR 1.3 08/23/18 04:30 APTT 28.8 Seconds (25.6-37.1) 08/23/18 04:30 - Constitutional Appears: Well - Head Exam Head Exam: ATRAUMATIC, NORMAL INSPECTION, NORMOCEPHALIC - Eye Exam Eye Exam: EOMI, Normal appearance, PERRL Pupil Exam: NORMAL ACCOMODATION, PERRL - ENT Exam ENT Exam: Mucous Membranes Moist, Normal Exam - Neck Exam Neck Exam: Full ROM, Normal Inspection. absent: Lymphadenopathy - Respiratory Exam Respiratory Exam: Clear to Ausculation Bilateral, NORMAL BREATHING PATTERN - Cardiovascular Exam Cardiovascular Exam: REGULAR RHYTHM, +S1, +S2. absent: Murmur - GI/Abdominal Exam GI & Abdominal Exam: Soft, Normal Bowel Sounds. absent: Tenderness - Rectal Exam Rectal Exam: Deferred - Exam Exam: Scrotal Swelling - Extremities Exam Extremities Exam: Full ROM, Normal Capillary Refill, Normal Inspection. absent: Joint Swelling, Pedal Edema - Back Exam Back Exam: NORMAL INSPECTION - Neurological Exam Neurological Exam: Alert, Awake, CN II-XII Intact, Normal Gait, Oriented x3 - Psychiatric Exam Psychiatric exam: Normal Affect, Normal Mood - Skin Skin Exam: Dry, Intact, Normal Color, Warm Assessment and Plan (1) Abscess Status: Acute (2) Cellulitis of scrotum Status: Acute (3) Acute epididymitis Status: Acute - Assessment and Plan (Free Text) Assessment: s/p I and D await cultures cont rx
[2018-08-24] MEDS ORDERED: Iodoform 1/2inx15ft BOT EXT ONE (13:18)
--- NOTE | 2018-08-24 18:14 | CP.PCM.HP ---
History of Present Illness - History of Present Illness History of Present Illness: 33 yo male w/ no known chronic diseases presented to ED with scrotal swelling/pain. Patient does have h/o epididymitis ongoing despite treatment with Levaquin 1 month ago and then bactrim. Was seen by urology as outpatient. Patient was evaluted in ED, CT and US of affected area was obtained. Urology and surgery on board Patient was brought to OR this morning for I&D of abscess of scrotum Patient seen and examined at bedside post op complains of post op pain and tiredness pain well controlled with meds no other complaints offered at tis time meds: as per chart all: as per chart Present on Admission - Present on Admission Any Indicators Present on Admission: No Review of Systems - Review of Systems All systems: reviewed and no additional remarkable complaints except (mentioned above) Past Patient History - Past Medical History & Family History Past Medical History?: Yes - Past Social History Smoking Status: Never Smoked - CARDIAC Hx Cardiac Disorders: No - PULMONARY Hx Respiratory Disorders: Yes Hx Asthma: Yes - NEUROLOGICAL Hx Neurological Disorder: No - HEENT Hx HEENT Problems: No - RENAL Hx Chronic Kidney Disease: No - ENDOCRINE/METABOLIC Hx Endocrine Disorders: No - HEMATOLOGICAL/ONCOLOGICAL Hx Blood Disorders: No Hx AIDS: No Hx Human Immunodeficiency Virus (HIV): No - INTEGUMENTARY Hx Dermatological Problems: No - MUSCULOSKELETAL/RHEUMATOLOGICAL Hx Musculoskeletal Disorders: No Hx Falls: No - GASTROINTESTINAL Hx Gastrointestinal Disorders: No - GENITOURINARY/GYNECOLOGICAL Hx Genitourinary Disorders: Yes Other/Comment: Epididymitis a month ago - PSYCHIATRIC Hx Psychophysiologic Disorder: No Hx Substance Use: No - SURGICAL HISTORY Hx Surgeries: No - ANESTHESIA Hx Anesthesia: No Meds Allergies/Adverse Reactions: Allergies Allergy/AdvReac Type Severity Reaction Status Date / Time piperacillin [From Zosyn] Allergy RASH Verified 08/23/18 15:05 tazobactam [From Zosyn] Allergy RASH Verified 08/23/18 15:05 Physical Exam - Constitutional Additional comments: ill appearing - Head Exam Head Exam: NORMAL INSPECTION - Eye Exam Eye Exam: Normal appearance - Respiratory Exam Respiratory Exam: NORMAL BREATHING PATTERN - Cardiovascular Exam Cardiovascular Exam: +S1, +S2 - GI/Abdominal Exam GI & Abdominal Exam: Soft - Neurological Exam Neurological exam: Alert, Oriented x3 - Psychiatric Exam Psychiatric exam: Normal Affect, Normal Mood - Skin Skin Exam: Normal Color, Warm Results - Vital Signs Recent Vital Signs: Last Vital Signs Temp 98.3 F 08/24/18 16:42 Pulse 105 H 08/24/18 16:42 Resp 16 08/24/18 16:42 BP 111/71 08/24/18 16:42 Pulse Ox 97 08/24/18 16:42 - Labs Result Diagrams: 08/24/18 05:15 08/24/18 05:15 Labs: Laboratory Results - last 24 hr 08/24/18 08/24/18 08/24/18 05:15 05:15 05:15 WBC 19.5 H RBC 3.50 L Hgb 9.0 L Hct 27.5 L MCV 78.5 L MCH 25.7 L MCHC 32.8 L RDW 14.6 H Plt Count 297 MPV 6.4 L Neut % (Auto) 83.1 H Lymph % (Auto) 9.3 L [place] % (Auto) 6.9 Eos % (Auto) 0.6 Baso % (Auto) 0.1 Neut # (Auto) 16.2 H Lymph # (Auto) 1.8 [place] # (Auto) 1.3 H Eos # (Auto) 0.1 Baso # (Auto) 0.0 Sodium 135 Potassium 3.7 Chloride 98 Carbon Dioxide 24 Anion Gap 17 BUN 12 Creatinine 1.0 Est GFR ( Amer) > 60 Est GFR (Non-Af Amer) > 60 Random Glucose 355 H Hemoglobin A1c 9.9 H Lactic Acid Calcium 8.8 Total Bilirubin 0.3 AST 17 D ALT 28 Alkaline Phosphatase 154 H Total Protein 5.7 L Albumin 2.7 L Globulin 3.0 Albumin/Globulin Ratio 0.9 L Vancomycin Trough 08/24/18 08/24/18 08/24/18 05:15 08:30 09:35 WBC RBC Hgb Hct MCV MCH MCHC RDW Plt Count MPV Neut % (Auto) Lymph % (Auto) [place] % (Auto) Eos % (Auto) Baso % (Auto) Neut # (Auto) Lymph # (Auto) [place] # (Auto) Eos # (Auto) Baso # (Auto) Sodium Potassium Chloride Carbon Dioxide Anion Gap BUN Creatinine Est GFR ( Amer) Est GFR (Non-Af Amer) Random Glucose Hemoglobin A1c Lactic Acid 1.7 0.9 Calcium Total Bilirubin AST ALT Alkaline Phosphatase Total Protein Albumin Globulin Albumin/Globulin Ratio Vancomycin Trough 7.0 Assessment & Plan (1) Scrotal abscess Status: Acute (2) Cellulitis Status: Acute - Assessment and Plan (Free Text) Plan: s/p I&d available diagnostic data reviewed monitor vitals monitor labs Cont meds Cont tx Surgery, Urology, Infectious disease consultants consultants appreciated input rest of plan as ordered
--- NOTE | 2018-08-24 18:20 | CP.PCM.PN ---
Subjective - Date & Time of Evaluation Date of Evaluation: 08/24/18 Time of Evaluation: 10:00 - Subjective Subjective: patient seen and examined at bedside. Interim events noted No complaints offered at this time, pain improving, tolerating po well denies cp/sob/fever/chills. available diagnostic data reviewed Review of Systems All systems: reviewed and no additional remarkable complaints except mentioned above Objective Vital Signs Stable - Constitutional Appears: Non-toxic, No Acute Distress Head Exam: NORMAL INSPECTION Eye Exam: Normal appearance Respiratory Exam: NORMAL BREATHING PATTERN Cardiovascular Exam: +S1, +S2 GI & Abdominal Exam: Soft Neurological Exam: Alert, Awake Psychiatric exam: Normal Affect, Normal Mood Skin Exam: Normal Color, Warm Assessment and Plan monitor vitals monitor labs Cont meds Cont tx consultants appreciated input had ?allergic rxn to zosyn, ID changed Abx WBC improving, though remains elevated [id number] pending rest of plan as ordered Objective - Vital Signs/Intake and Output Vital Signs (last 24 hours): Temp Pulse Resp BP Pulse Ox 98.3 F 105 H 16 111/71 97 08/24/18 16:42 08/24/18 16:42 08/24/18 16:42 08/24/18 16:42 08/24/18 16:42 Intake and Output: 08/24/18 08/24/18 06:59 18:59 Intake Total 5200 Output Total 3300 Balance 1900 - Medications Medications: Current Medications Hydromorphone HCl (Dilaudid) 0.5 mg IVP Q4 PRN PRN Reason: Pain, severe (8-10) Last Admin: 08/24/18 16:21 Dose: 0.5 mg Lactated Ringer's (Lactated Ringer's) 1,000 mls @ 125 mls/hr IV .Q8H TERRI Last Admin: 08/24/18 16:17 Dose: 125 mls/hr Vancomycin HCl 1 gm/ Sodium (Chloride) 250 mls @ 166.667 mls/hr IVPB Q12 TERRI; Protocol Last Admin: 08/24/18 11:17 Dose: 166.667 mls/hr Metronidazole (Flagyl 500mg/100ml Ns) 100 mls @ 100 mls/hr IVPB Q8 TERRI; Protocol Last Admin: 08/24/18 16:19 Dose: 100 mls/hr Aztreonam 1 gm/ Sodium (Chloride) 100 mls @ 100 mls/hr IVPB Q8 TERRI; Protocol Last Admin: 08/24/18 18:04 Dose: 100 mls/hr - Labs Labs: 08/24/18 05:15 08/24/18 05:15 PT 14.6 Seconds (9.8-13.1) H 08/23/18 04:30 INR 1.3 08/23/18 04:30 APTT 28.8 Seconds (25.6-37.1) 08/23/18 04:30 Assessment and Plan (1) Scrotal abscess Status: Acute (2) Cellulitis Status: Acute
[2018-08-25] MEDS: HYDROmorphone 0.5 mg/0.5 ml ISec IVP PRN ×2 (00:36→04:45)
[2018-08-25] MEDS: metroNIDAZOLE 500mg/100ml NS 100 ML IVPB SCH ×3 (00:37→16:50)
[2018-08-25] MEDS: Aztreonam 1 GM in Sodium Chloride 0.9% 100 ML IVPB SCH ×3 (00:37→16:49)
[2018-08-25] MEDS: Lactated Ringer's 1,000 ML IV SCH ×3 (00:38→16:45)
[2018-08-25] MEDS ORDERED: Oxycodone/Acetaminophen 5/325 mg Tab PO PRN ×3 (09:18→09:25)
[2018-08-25] MEDS ORDERED: Glucagon Recombinant 1 mg Inj IM PRN (09:21)
[2018-08-25] MEDS ORDERED: Dextrose 50% SYRINGE Inj (50 ml) IV PRN (09:21)
[2018-08-25] MEDS ORDERED: Lactulose 10 gm/15 ml Syrup PO PRN (09:25)
[2018-08-25] MEDS: Pantoprazole 40 mg EC Tab PO SCH (10:02)
[2018-08-25 10:03] LABS: HEMOGLOBIN 9.5 g/dL (12.0-18.0); MEAN CELL VOLUME 77.9 fl (80.0-94.0); MEAN CORPUSCULAR HEMOGLOBIN 26.5 pg (27.0-31.0); RBC 3.59 Mil/uL (4.40-5.90); WHITE BLOOD COUNT 13.8 K/uL (4.8-10.8)
--- NOTE | 2018-08-25 10:52 | CP.PCM.PN ---
Subjective - Date & Time of Evaluation Date of Evaluation: 08/25/18 Time of Evaluation: 10:00 - Subjective Subjective: less fever c/o pain may need gu RE-EVAL iv RX IN PROGRESS Objective - Vital Signs/Intake and Output Vital Signs (last 24 hours): Temp Pulse Resp BP Pulse Ox 99.1 F 88 18 115/75 94 L 08/25/18 08:00 08/25/18 08:00 08/25/18 08:00 08/25/18 08:00 08/25/18 08:00 Intake and Output: 08/25/18 08/25/18 06:59 18:59 Intake Total 1375 Balance 1375 - Medications Medications: Current Medications Dextrose (Dextrose 50% Inj) 0 ml IV STAT PRN; Protocol PRN Reason: Hypoglycemia Protocol Dextrose (Glutose 15) 0 gm PO ONCE PRN; Protocol PRN Reason: Hypoglycemia Protocol Glucagon (Glucagen Diagnostic Kit) 0 mg IM STAT PRN; Protocol PRN Reason: Hypoglycemia Protocol Hydromorphone HCl (Dilaudid) 1 mg IVP Q4 PRN PRN Reason: Pain, severe (8-10) Last Admin: 08/25/18 10:00 Dose: 1 mg Lactated Ringer's (Lactated Ringer's) 1,000 mls @ 125 mls/hr IV .Q8H [facility] Last Admin: 08/25/18 08:49 Dose: 125 mls/hr Vancomycin HCl 1 gm/ Sodium (Chloride) 250 mls @ 166.667 mls/hr IVPB Q12 [facility]; Protocol Last Admin: 08/25/18 08:50 Dose: 166.667 mls/hr Metronidazole (Flagyl 500mg/100ml Ns) 100 mls @ 100 mls/hr IVPB Q8 [facility]; Protocol Last Admin: 08/25/18 08:48 Dose: 100 mls/hr Aztreonam 1 gm/ Sodium (Chloride) 100 mls @ 100 mls/hr IVPB Q8 [facility]; Protocol Last Admin: 08/25/18 08:48 Dose: 100 mls/hr Insulin Human Regular (Humulin R) 0 units SC ACHS [facility]; Protocol Lactulose (Enulose) 10 gm PO DAILY PRN PRN Reason: Constipation Metformin HCl (Glucophage) 500 mg PO BID [facility] Last Admin: 08/25/18 10:03 Dose: 500 mg Oxycodone/Acetaminophen (Percocet 5/325 Mg Tab) 2 tab PO Q4 PRN PRN Reason: Pain, moderate (4-7) Stop: 08/28/18 09:20 Oxycodone/Acetaminophen (Percocet 5/325 Mg Tab) 1 tab PO Q4 PRN PRN Reason: Pain, Mild (1-3) Stop: 08/28/18 09:19 Pantoprazole Sodium (Protonix Ec Tab) 40 mg PO DAILY [facility] Last Admin: 08/25/18 10:02 Dose: 40 mg - Labs Labs: 08/25/18 09:40 08/24/18 05:15 PT 14.6 Seconds (9.8-13.1) H 08/23/18 04:30 INR 1.3 08/23/18 04:30 APTT 28.8 Seconds (25.6-37.1) 08/23/18 04:30 - Constitutional Appears: Well - Head Exam Head Exam: ATRAUMATIC, NORMAL INSPECTION, NORMOCEPHALIC - Eye Exam Eye Exam: EOMI, Normal appearance, PERRL Pupil Exam: NORMAL ACCOMODATION, PERRL - ENT Exam ENT Exam: Mucous Membranes Moist, Normal Exam - Neck Exam Neck Exam: Full ROM, Normal Inspection. absent: Lymphadenopathy - Respiratory Exam Respiratory Exam: Clear to Ausculation Bilateral, NORMAL BREATHING PATTERN - Cardiovascular Exam Cardiovascular Exam: REGULAR RHYTHM, +S1, +S2. absent: Murmur - GI/Abdominal Exam GI & Abdominal Exam: Soft, Normal Bowel Sounds. absent: Tenderness - Rectal Exam Rectal Exam: Deferred - Exam Exam: Scrotal Swelling, Testicular Tenderness - Extremities Exam Extremities Exam: Full ROM, Normal Capillary Refill, Normal Inspection. absent: Joint Swelling, Pedal Edema - Back Exam Back Exam: NORMAL INSPECTION - Neurological Exam Neurological Exam: Alert, Awake, CN II-XII Intact, Normal Gait, Oriented x3 - Psychiatric Exam Psychiatric exam: Normal Affect, Normal Mood - Skin Skin Exam: Dry, Intact, Normal Color, Warm Assessment and Plan (1) Abscess Status: Acute (2) Cellulitis of scrotum Status: Acute (3) Acute epididymitis Status: Acute - Assessment and Plan (Free Text) Assessment: cont IV antibiotic and wound care for now then on e stable urologically d/c on PO rx
[2018-08-25] MEDS: Insulin Regular 100 units/ml SC SCH ×3 (12:05→22:15)
--- NOTE | 2018-08-25 13:19 | CP.PCM.PCO ---
Assessment/Plan - Assessment and Plan (Free Text) Assessment: pt. w/ c/o intermittent
--- NOTE | 2018-08-25 16:08 | RAD ---
Date of service: 08/25/2018 HISTORY: n/v COMPARISON: None available. FINDINGS: BOWEL: Normal. No obstruction. No free air. No abnormal internal calcifications identified. BONES: Normal. OTHER FINDINGS: None. IMPRESSION: Unremarkable single abdomen radiograph.
[2018-08-26] MEDS: metroNIDAZOLE 500mg/100ml NS 100 ML IVPB SCH ×3 (00:12→17:58)
[2018-08-26] MEDS: Aztreonam 1 GM in Sodium Chloride 0.9% 100 ML IVPB SCH ×3 (00:13→16:30)
[2018-08-26] MEDS: Lactated Ringer's 1,000 ML IV SCH ×3 (00:16→16:34)
--- NOTE | 2018-08-26 01:56 | OP ---
PROCEDURE DATE: 08/23/2018 PREOPERATIVE DIAGNOSIS: Right scroto-perineal abscess. POSTOPERATIVE DIAGNOSIS: Right scroto-perineal abscess. PROCEDURE PERFORMED: Incision and drainage of right scroto-perineal abscess. DESCRIPTION OF THE PROCEDURE: The patient was placed on the operating room table in a supine frog-leg position. The area of the groin was draped and prepped in a sterile manner. At this point, I made an incision into the rather enlarged hemiscrotum on the right side. There was significant amount of purulent material that was drained. I used a pool suction to remove a lot of it and then began to irrigate the area with vancomycin laden irrigation. I did that for probably at least 1000 mL. Once the outflow was clear, I digitally tried to open all the different cavities of this scrotal abscess. Once I felt comfortable that all of these were open, then there was no other abscess pocket to be seen. I then used Iodoform packing two full bottles to pack the area and once this was done, I placed some tacking with 3-0 Vicryl sutures to approximate the skin edges, and then the patient was taken from the operating room in good condition. Kalyani Vogt MD
--- NOTE | 2018-08-26 02:27 | CON ---
DATE: 08/22/2018 This is a 33-year-old male patient, came in through the emergency room because of a significant scrotal swelling. The patient is diabetic. This swelling began several days prior, although he had this similar condition about a month ago. He was treated at that time for what was supposedly epididymitis. He had some followup and was reinforced with antibiotics at that time; however, it appears to have recurred in the form of a scrotal abscess at this time. The patient has on admission a 22,000 white count. BUN and creatinine is normal. Glucose has been over 355 on admission. The patient is being controlled with insulin for that part of it. Cultures were taken from the urine which came back as no growth. So, the patient at this time needs to be taken to the operating room for incision and drainage of a rather large scrotal abscess. We will monitor him during the night and until such time as we can get an operating room time and at that point proceed with the drainage. Kalyani Vogt MD
[2018-08-26 06:13] LABS: HEMOGLOBIN 9.4 g/dL (12.0-18.0); MEAN CELL VOLUME 78.4 fl (80.0-94.0); MEAN CORPUSCULAR HEMOGLOBIN 26.3 pg (27.0-31.0); MEAN CORPUSCULAR HGB CONC 33.5 g/dL (33.0-37.0); RBC 3.59 Mil/uL (4.40-5.90); RED CELL DISTRIBUTION WIDTH 13.9 % (11.5-14.5); WHITE BLOOD COUNT 12.2 K/uL (4.8-10.8)
[2018-08-26] MEDS: Insulin Regular 100 units/ml SC SCH ×4 (08:47→22:27)
[2018-08-26] MEDS: Pantoprazole 40 mg EC Tab PO SCH (08:48)
--- NOTE | 2018-08-26 11:24 | PQF ---
PROVIDER RESPONSE TEXT: SEPSIS WITH SUSPECTED CAUSE OF KLEBSIELLA REVIEWER QUERY TEXT: Rule Out Sepsis Clarification The diagnosis of Sepsis is in the admitting order in the Medical Record. Please clarify whether: -- Patient has sepsis - Please document confirmed, suspected or probable causative organism - Please document confirmed, suspected or probable localized infection - Please clarify if sepsis was present on admission -- Sepsis was ruled out (include corresponding diagnosis for patient?s clinical picture and treatment ) -- Patient had sepsis which is resolved -- Other, please specify The patient's Clinical Indicators include: ID: Admitted with fever, leukocytosis and lactic academia. DX Acute epididymitis, cellulitis of scrot um, abscess WBC 22.7 L shift 13% BANDS, Lactic acid 2.9, glucose 330, PT 13.4, BLOOD CS No growth 48 hours 08/23/18 Incision and drainage of scrotal abscess. Scrotum CS: Klebsiella Pneumoniae Ssp Pneu TEMP 98.1, 99.8, 99.8, 99.4, 100.7, 100.7, 99.3, 99.3, 98.8 HR: 120, 122, 122, 122, 128, 128, 134, 115, 104, 134 BP: 125/46, 129/76 x 3, 123/73, 124/72, 105/66 x 2 Rx: Multiple IVAB Query created by: Violet Felix on 08/25/2018 9:13 AM Electronically signed by: Rosalino Escalera 08/26/2018 11:21 AM
--- NOTE | 2018-08-26 11:44 | CP.PCM.CON ---
History of Present Illness - History of Present Illness History of Present Illness: 33 yo man w/ scrotal abscess s/p debridement is referred for pain management. Patient had surgery on Friday and is improving clinically. He is mostly on Dilaudid IV ATC for pain control. Percocet has been ordered but hasn't been administered per the patient. The pain is mainly in the scrotal area, and doesn't radiate. He denies chronic pain history or chronic opioid/substance use. Past Patient History - Past Medical History & Family History Past Medical History?: Yes - Past Social History Smoking Status: Never Smoked - CARDIAC Hx Cardiac Disorders: No - PULMONARY Hx Respiratory Disorders: Yes Hx Asthma: Yes - NEUROLOGICAL Hx Neurological Disorder: No - HEENT Hx HEENT Problems: No - RENAL Hx Chronic Kidney Disease: No - ENDOCRINE/METABOLIC Hx Endocrine Disorders: No - HEMATOLOGICAL/ONCOLOGICAL Hx Blood Disorders: No Hx AIDS: No Hx Human Immunodeficiency Virus (HIV): No - INTEGUMENTARY Hx Dermatological Problems: No - MUSCULOSKELETAL/RHEUMATOLOGICAL Hx Musculoskeletal Disorders: No Hx Falls: No - GASTROINTESTINAL Hx Gastrointestinal Disorders: No - GENITOURINARY/GYNECOLOGICAL Hx Genitourinary Disorders: Yes Other/Comment: Epididymitis a month ago - PSYCHIATRIC Hx Psychophysiologic Disorder: No Hx Substance Use: No - SURGICAL HISTORY Hx Surgeries: No - ANESTHESIA Hx Anesthesia: No Meds Allergies/Adverse Reactions: Allergies Allergy/AdvReac Type Severity Reaction Status Date / Time piperacillin [From Zosyn] Allergy RASH Verified 08/23/18 15:05 tazobactam [From Zosyn] Allergy RASH Verified 08/23/18 15:05 - Medications Medications: Current Medications Dextrose (Dextrose 50% Inj) 0 ml IV STAT PRN; Protocol PRN Reason: Hypoglycemia Protocol Dextrose (Glutose 15) 0 gm PO ONCE PRN; Protocol PRN Reason: Hypoglycemia Protocol Glucagon (Glucagen Diagnostic Kit) 0 mg IM STAT PRN; Protocol PRN Reason: Hypoglycemia Protocol Hydromorphone HCl (Dilaudid) 1 mg IVP Q8 PRN PRN Reason: Pain, severe (8-10) Lactated Ringer's (Lactated Ringer's) 1,000 mls @ 125 mls/hr IV .Q8H [facility] Last Admin: 08/26/18 08:51 Dose: 125 mls/hr Vancomycin HCl 1 gm/ Sodium (Chloride) 250 mls @ 166.667 mls/hr IVPB Q12 [facility]; Protocol Last Admin: 08/26/18 11:06 Dose: 166.667 mls/hr Metronidazole (Flagyl 500mg/100ml Ns) 100 mls @ 100 mls/hr IVPB Q8 [facility]; Protocol Last Admin: 08/26/18 08:48 Dose: 100 mls/hr Aztreonam 1 gm/ Sodium (Chloride) 100 mls @ 100 mls/hr IVPB Q8 [facility]; Protocol Last Admin: 08/26/18 10:07 Dose: 100 mls/hr Insulin Human Regular (Humulin R) 0 units SC ACHS [facility]; Protocol Last Admin: 08/26/18 08:47 Dose: 1 units Lactulose (Enulose) 10 gm PO DAILY PRN PRN Reason: Constipation Metformin HCl (Glucophage) 1,000 mg PO BIDWM [facility] Last Admin: 08/26/18 08:48 Dose: 1,000 mg Naproxen (Naproxen) 500 mg PO Q12 [facility] Ondansetron HCl (Zofran Inj) 4 mg IVP Q6 PRN PRN Reason: Nausea/Vomiting Oxycodone/Acetaminophen (Percocet 5/325 Mg Tab) 2 tab PO Q4 PRN PRN Reason: Pain, moderate (4-7) Stop: 08/28/18 09:20 Oxycodone/Acetaminophen (Percocet 5/325 Mg Tab) 1 tab PO Q4 PRN PRN Reason: Pain, Mild (1-3) Stop: 08/28/18 09:19 Pantoprazole Sodium (Protonix Ec Tab) 40 mg PO DAILY [facility] Last Admin: 08/26/18 08:48 Dose: 40 mg Sitagliptin Phosphate (Januvia) 25 mg PO DAILY [facility] Last Admin: 08/26/18 08:47 Dose: 25 mg Physical Exam - Constitutional Appears: Non-toxic Results - Vital Signs Recent Vital Signs: Last Vital Signs Temp 98.2 F 08/26/18 08:30 Pulse 84 08/26/18 09:00 Resp 20 08/26/18 08:30 BP 119/74 08/26/18 08:30 Pulse Ox 97 08/26/18 08:30 - Labs Result Diagrams: 08/26/18 05:20 08/24/18 05:15 Labs: Laboratory Results - last 24 hr 08/22/18 08/25/18 08/25/18 07:00 11:17 15:52 WBC RBC Hgb Hct MCV MCH MCHC RDW Plt Count POC Glucose (mg/dL) 232 H 274 H C.trachomatis RNA (TMA) Not detected N.gonorrhoeae RNA (TMA) Not detected 08/25/18 08/26/18 08/26/18 21:57 05:20 05:39 WBC 12.2 H RBC 3.59 L Hgb 9.4 L Hct 28.1 L MCV 78.4 L MCH 26.3 L MCHC 33.5 RDW 13.9 Plt Count 342 POC Glucose (mg/dL) 131 H 154 H C.trachomatis RNA (TMA) N.gonorrhoeae RNA (TMA) 08/26/18 11:19 WBC RBC Hgb Hct MCV MCH MCHC RDW Plt Count POC Glucose (mg/dL) 213 H C.trachomatis RNA (TMA) N.gonorrhoeae RNA (TMA) Assessment & Plan (1) Abscess Assessment and Plan: 33 yo man s/p scrotal abscess debridement. - encourage Percocet for pain - add Naproxen to regimen - continue Dilaudid IV for now, but will change frequency to q8h PRN, only to be used if pain doesn't respond to Percocet - patient can be discharged with Percocet and Naproxen Status: Acute
[2018-08-26 12:01] LABS: BLOOD UREA NITROGEN 6 mg/dl (9-20); CALCIUM 8.7 mg/dL (8.4-10.2); GFR NON-AFRICAN AMERICAN > 60
[2018-08-26] MEDS: Naproxen 500 MG TAB PO SCH ×2 (13:30→21:12)
--- NOTE | 2018-08-26 13:54 | CP.PCM.PN ---
Subjective - Date & Time of Evaluation Date of Evaluation: 08/26/18 Time of Evaluation: 09:00 - Subjective Subjective: no fever less pain and swelling cultures noted Objective - Vital Signs/Intake and Output Vital Signs (last 24 hours): Temp Pulse Resp BP Pulse Ox 97.8 F 79 20 112/70 97 08/26/18 12:26 08/26/18 12:26 08/26/18 12:26 08/26/18 12:26 08/26/18 12:26 Intake and Output: 08/26/18 08/26/18 06:59 18:59 Intake Total 2870 Output Total 2500 Balance 370 - Medications Medications: Current Medications Dextrose (Dextrose 50% Inj) 0 ml IV STAT PRN; Protocol PRN Reason: Hypoglycemia Protocol Dextrose (Glutose 15) 0 gm PO ONCE PRN; Protocol PRN Reason: Hypoglycemia Protocol Glucagon (Glucagen Diagnostic Kit) 0 mg IM STAT PRN; Protocol PRN Reason: Hypoglycemia Protocol Hydromorphone HCl (Dilaudid) 1 mg IVP Q8 PRN PRN Reason: Pain, severe (8-10) Lactated Ringer's (Lactated Ringer's) 1,000 mls @ 125 mls/hr IV .Q8H [facility] Last Admin: 08/26/18 08:51 Dose: 125 mls/hr Vancomycin HCl 1 gm/ Sodium (Chloride) 250 mls @ 166.667 mls/hr IVPB Q12 [facility]; Protocol Last Admin: 08/26/18 11:06 Dose: 166.667 mls/hr Metronidazole (Flagyl 500mg/100ml Ns) 100 mls @ 100 mls/hr IVPB Q8 [facility]; Protocol Last Admin: 08/26/18 08:48 Dose: 100 mls/hr Aztreonam 1 gm/ Sodium (Chloride) 100 mls @ 100 mls/hr IVPB Q8 [facility]; Protocol Last Admin: 08/26/18 10:07 Dose: 100 mls/hr Insulin Human Regular (Humulin R) 0 units SC ACHS [facility]; Protocol Last Admin: 08/26/18 13:31 Dose: 2 units Lactulose (Enulose) 10 gm PO DAILY PRN PRN Reason: Constipation Metformin HCl (Glucophage) 1,000 mg PO BIDWM [facility] Last Admin: 08/26/18 08:48 Dose: 1,000 mg Naproxen (Naproxen) 500 mg PO Q12 [facility] Last Admin: 08/26/18 13:30 Dose: 500 mg Ondansetron HCl (Zofran Inj) 4 mg IVP Q6 PRN PRN Reason: Nausea/Vomiting Oxycodone/Acetaminophen (Percocet 5/325 Mg Tab) 2 tab PO Q4 PRN PRN Reason: Pain, moderate (4-7) Stop: 08/28/18 09:20 Oxycodone/Acetaminophen (Percocet 5/325 Mg Tab) 1 tab PO Q4 PRN PRN Reason: Pain, Mild (1-3) Stop: 08/28/18 09:19 Pantoprazole Sodium (Protonix Ec Tab) 40 mg PO DAILY [facility] Last Admin: 08/26/18 08:48 Dose: 40 mg Sitagliptin Phosphate (Januvia) 25 mg PO DAILY [facility] Last Admin: 08/26/18 08:47 Dose: 25 mg - Labs Labs: 08/26/18 05:20 08/26/18 10:58 PT 14.6 Seconds (9.8-13.1) H 08/23/18 04:30 INR 1.3 08/23/18 04:30 APTT 28.8 Seconds (25.6-37.1) 08/23/18 04:30 - Constitutional Appears: Non-toxic - Head Exam Head Exam: NORMOCEPHALIC - Eye Exam Eye Exam: absent: Scleral icterus - ENT Exam ENT Exam: Mucous Membranes Dry - Neck Exam Neck Exam: absent: Lymphadenopathy - Respiratory Exam Respiratory Exam: Decreased Breath Sounds - Cardiovascular Exam Cardiovascular Exam: REGULAR RHYTHM - GI/Abdominal Exam GI & Abdominal Exam: Distended - Rectal Exam Rectal Exam: Deferred - Exam Exam: Scrotal Swelling, Testicular Tenderness - Extremities Exam Extremities Exam: absent: Pedal Edema - Back Exam Back Exam: absent: CVA tenderness (L), CVA tenderness (R) - Neurological Exam Neurological Exam: Alert, Awake, CN II-XII Intact Neuro motor strength exam: Left Upper Extremity: 4, Right Upper Extremity: 4, Left Lower Extremity: 4, Right Lower Extremity: 4 - Psychiatric Exam Psychiatric exam: Depressed Assessment and Plan (1) Abscess Status: Acute (2) Cellulitis of scrotum Status: Acute (3) Acute epididymitis Status: Acute (4) Diabetes mellitus, new onset Status: Acute - Assessment and Plan (Free Text) Assessment: cont IV antibiotics wound care and pain management
--- NOTE | 2018-08-26 22:01 | CP.PCM.PN ---
Subjective - Date & Time of Evaluation Date of Evaluation: 08/26/18 Time of Evaluation: 11:45 - Subjective Subjective: UROLOGY POD#2 pt seen today this will be his second packing change in as many days. The wound site remains indurated ans sensitive as expected and the drainage from the lower scrotal opening appears match up worker in color. It is important to continue IV antibiotics till his white count completely normalizes. Will cont packing changes as needed Objective - Vital Signs/Intake and Output Vital Signs (last 24 hours): Temp Pulse Resp BP Pulse Ox 97.4 F L 80 18 111/70 94 L 08/26/18 19:59 08/26/18 19:59 08/26/18 19:59 08/26/18 19:59 08/26/18 19:59 - Medications Medications: Current Medications Dextrose (Dextrose 50% Inj) 0 ml IV STAT PRN; Protocol PRN Reason: Hypoglycemia Protocol Dextrose (Glutose 15) 0 gm PO ONCE PRN; Protocol PRN Reason: Hypoglycemia Protocol Glucagon (Glucagen Diagnostic Kit) 0 mg IM STAT PRN; Protocol PRN Reason: Hypoglycemia Protocol Hydromorphone HCl (Dilaudid) 1 mg IVP Q8 PRN PRN Reason: Pain, severe (8-10) Lactated Ringer's (Lactated Ringer's) 1,000 mls @ 125 mls/hr IV .Q8H [facility] Last Admin: 08/26/18 16:34 Dose: 125 mls/hr Vancomycin HCl 1 gm/ Sodium (Chloride) 250 mls @ 166.667 mls/hr IVPB Q12 [facility]; Protocol Last Admin: 08/26/18 21:14 Dose: 166.667 mls/hr Metronidazole (Flagyl 500mg/100ml Ns) 100 mls @ 100 mls/hr IVPB Q8 [facility]; Protocol Last Admin: 08/26/18 17:58 Dose: 100 mls/hr Aztreonam 1 gm/ Sodium (Chloride) 100 mls @ 100 mls/hr IVPB Q8 [facility]; Protocol Last Admin: 08/26/18 16:30 Dose: 100 mls/hr Insulin Human Regular (Humulin R) 0 units SC ACHS [facility]; Protocol Last Admin: 08/26/18 16:32 Dose: 1 units Lactulose (Enulose) 10 gm PO DAILY PRN PRN Reason: Constipation Metformin HCl (Glucophage) 1,000 mg PO BIDWM [facility] Last Admin: 08/26/18 16:32 Dose: 1,000 mg Naproxen (Naproxen) 500 mg PO Q12 [facility] Last Admin: 08/26/18 21:12 Dose: 500 mg Ondansetron HCl (Zofran Inj) 4 mg IVP Q6 PRN PRN Reason: Nausea/Vomiting Oxycodone/Acetaminophen (Percocet 5/325 Mg Tab) 2 tab PO Q4 PRN PRN Reason: Pain, moderate (4-7) Stop: 08/28/18 09:20 Oxycodone/Acetaminophen (Percocet 5/325 Mg Tab) 1 tab PO Q4 PRN PRN Reason: Pain, Mild (1-3) Stop: 08/28/18 09:19 Pantoprazole Sodium (Protonix Ec Tab) 40 mg PO DAILY [facility] Last Admin: 08/26/18 08:48 Dose: 40 mg Sitagliptin Phosphate (Januvia) 25 mg PO DAILY [facility] Last Admin: 08/26/18 08:47 Dose: 25 mg - Labs Labs: 08/26/18 05:20 08/26/18 10:58 PT 14.6 Seconds (9.8-13.1) H 08/23/18 04:30 INR 1.3 08/23/18 04:30 APTT 28.8 Seconds (25.6-37.1) 08/23/18 04:30
[2018-08-27] MEDS: Oxycodone/Acetaminophen 5/325 mg Tab PO PRN ×3 (00:06→16:49)
[2018-08-27] MEDS: Aztreonam 1 GM in Sodium Chloride 0.9% 100 ML IVPB SCH ×3 (00:06→16:50)
[2018-08-27] MEDS: metroNIDAZOLE 500mg/100ml NS 100 ML IVPB SCH ×3 (00:06→16:50)
[2018-08-27] MEDS: Lactated Ringer's 1,000 ML IV SCH ×3 (01:00→16:55)
[2018-08-27 06:43] LABS: BASO % 0.1 % (0.0-2.0); EOS # 0.2 K/uL (0.0-0.7); HEMOGLOBIN 9.1 g/dL (12.0-18.0); LYMPH % 17.6 % (20.0-40.0); MEAN CELL VOLUME 78.7 fl (80.0-94.0); MEAN CORPUSCULAR HEMOGLOBIN 26.2 pg (27.0-31.0); MEAN CORPUSCULAR HGB CONC 33.3 g/dL (33.0-37.0); MEAN PLATELET VOLUME 6.3 fl (7.2-11.7); MONO # 0.7 K/uL (0.0-0.8); MONO % 6.2 % (0.0-10.0); NEUT # 8.2 K/uL (1.8-7.0); NEUT % 74.1 % (50.0-75.0); NRBC % 0.1 % (0.0-0.0); RBC 3.48 Mil/uL (4.40-5.90); RED CELL DISTRIBUTION WIDTH 13.6 % (11.5-14.5); WHITE BLOOD COUNT 11.1 K/uL (4.8-10.8)
[2018-08-27 06:49] LABS: ALB/GLOB RATIO 0.8 (1.0-2.1); ALBUMIN 2.4 g/dL (3.5-5.0); ALT/SGPT 56 U/L (21-72); AST/SGOT 56 U/L (17-59); BLOOD UREA NITROGEN 11 mg/dl (9-20); CALCIUM 8.1 mg/dL (8.4-10.2); GFR NON-AFRICAN AMERICAN > 60
--- NOTE | 2018-08-27 08:22 | CP.PCM.PN ---
Subjective - Date & Time of Evaluation Date of Evaluation: 08/25/18 Time of Evaluation: 08:18 - Subjective Subjective: Patient has less pain. Still with elevated WBC. Has no chest pain or SOB. Objective - Vital Signs/Intake and Output Vital Signs (last 24 hours): Temp Pulse Resp BP Pulse Ox 97.6 F 69 20 109/69 98 08/27/18 05:06 08/27/18 05:06 08/27/18 05:06 08/27/18 05:06 08/27/18 05:06 - Medications Medications: Current Medications Dextrose (Dextrose 50% Inj) 0 ml IV STAT PRN; Protocol PRN Reason: Hypoglycemia Protocol Dextrose (Glutose 15) 0 gm PO ONCE PRN; Protocol PRN Reason: Hypoglycemia Protocol Glucagon (Glucagen Diagnostic Kit) 0 mg IM STAT PRN; Protocol PRN Reason: Hypoglycemia Protocol Hydromorphone HCl (Dilaudid) 1 mg IVP Q8 PRN PRN Reason: Pain, severe (8-10) Lactated Ringer's (Lactated Ringer's) 1,000 mls @ 125 mls/hr IV .Q8H [facility] Last Admin: 08/27/18 01:00 Dose: 125 mls/hr Vancomycin HCl 1 gm/ Sodium (Chloride) 250 mls @ 166.667 mls/hr IVPB Q12 [facility]; Protocol Last Admin: 08/26/18 21:14 Dose: 166.667 mls/hr Metronidazole (Flagyl 500mg/100ml Ns) 100 mls @ 100 mls/hr IVPB Q8 [facility]; Protocol Last Admin: 08/27/18 00:06 Dose: 100 mls/hr Aztreonam 1 gm/ Sodium (Chloride) 100 mls @ 100 mls/hr IVPB Q8 [facility]; Protocol Last Admin: 08/27/18 00:06 Dose: 100 mls/hr Insulin Human Regular (Humulin R) 0 units SC ACHS [facility]; Protocol Last Admin: 08/26/18 22:27 Dose: Not Given Lactulose (Enulose) 10 gm PO DAILY PRN PRN Reason: Constipation Metformin HCl (Glucophage) 1,000 mg PO BIDWM [facility] Last Admin: 08/26/18 16:32 Dose: 1,000 mg Naproxen (Naproxen) 500 mg PO Q12 [facility] Last Admin: 08/26/18 21:12 Dose: 500 mg Ondansetron HCl (Zofran Inj) 4 mg IVP Q6 PRN PRN Reason: Nausea/Vomiting Oxycodone/Acetaminophen (Percocet 5/325 Mg Tab) 2 tab PO Q4 PRN PRN Reason: Pain, moderate (4-7) Stop: 08/28/18 09:20 Last Admin: 08/27/18 00:06 Dose: 2 tab Oxycodone/Acetaminophen (Percocet 5/325 Mg Tab) 1 tab PO Q4 PRN PRN Reason: Pain, Mild (1-3) Stop: 08/28/18 09:19 Pantoprazole Sodium (Protonix Ec Tab) 40 mg PO DAILY [facility] Last Admin: 08/26/18 08:48 Dose: 40 mg Sitagliptin Phosphate (Januvia) 25 mg PO DAILY [facility] Last Admin: 08/26/18 08:47 Dose: 25 mg - Labs Labs: 08/27/18 04:35 08/27/18 04:35 PT 14.6 Seconds (9.8-13.1) H 08/23/18 04:30 INR 1.3 08/23/18 04:30 APTT 28.8 Seconds (25.6-37.1) 08/23/18 04:30 - Head Exam Head Exam: NORMAL INSPECTION - Eye Exam Eye Exam: Normal appearance - ENT Exam ENT Exam: Mucous Membranes Moist - Respiratory Exam Respiratory Exam: Clear to Ausculation Bilateral - GI/Abdominal Exam GI & Abdominal Exam: Hyperactive Bowel Sounds, Normal Bowel Sounds - Exam Exam: Scrotal Swelling, Testicular Tenderness - Neurological Exam Neurological Exam: Awake, Oriented x3 Assessment and Plan (1) Cellulitis of scrotum Status: Acute (2) Diabetes mellitus, new onset Status: Acute (3) Scrotal abscess Status: Acute - Assessment and Plan (Free Text) Plan: Cont meds Con tx IV antibiotics Cont monitor CBC
[2018-08-27] MEDS: Insulin Regular 100 units/ml SC SCH ×4 (09:43→22:00)
[2018-08-27] MEDS: Pantoprazole 40 mg EC Tab PO SCH (09:44)
[2018-08-27] MEDS: Naproxen 500 MG TAB PO SCH ×2 (09:44→20:02)
[2018-08-27] MEDS: Potassium Chloride 20 mEq ER Tab PO SCH ×2 (09:46→16:55)
[2018-08-27] MEDS ORDERED: Povidone Iodine Topical 10% Sol ONE (11:32)
--- NOTE | 2018-08-27 17:23 | CP.PCM.PN ---
Subjective - Date & Time of Evaluation Date of Evaluation: 08/27/18 Time of Evaluation: 10:00 - Subjective Subjective: patient seen and examined at bedside. Interim events noted No complaints offered at this time, pain improving, tolerating po well denies cp/sob/fever/chills. available diagnostic data reviewed Review of Systems All systems: reviewed and no additional remarkable complaints except mentioned above Objective Vital Signs Stable - Constitutional Appears: Non-toxic, No Acute Distress Head Exam: NORMAL INSPECTION Eye Exam: Normal appearance Respiratory Exam: NORMAL BREATHING PATTERN Cardiovascular Exam: +S1, +S2 GI & Abdominal Exam: Soft Neurological Exam: Alert, Awake Psychiatric exam: Normal Affect, Normal Mood Skin Exam: Normal Color, Warm Assessment and Plan monitor vitals monitor labs Cont meds Cont tx consultants appreciated input WBC improving, though remains elevated rest of plan as ordered Objective - Vital Signs/Intake and Output Vital Signs (last 24 hours): Temp Pulse Resp BP Pulse Ox 98 F 80 16 99/63 L 98 08/27/18 16:23 08/27/18 16:23 08/27/18 16:23 08/27/18 16:23 08/27/18 16:23 - Medications Medications: Current Medications Dextrose (Dextrose 50% Inj) 0 ml IV STAT PRN; Protocol PRN Reason: Hypoglycemia Protocol Dextrose (Glutose 15) 0 gm PO ONCE PRN; Protocol PRN Reason: Hypoglycemia Protocol Glucagon (Glucagen Diagnostic Kit) 0 mg IM STAT PRN; Protocol PRN Reason: Hypoglycemia Protocol Hydromorphone HCl (Dilaudid) 1 mg IVP Q8 PRN PRN Reason: Pain, severe (8-10) Last Admin: 08/27/18 09:40 Dose: 1 mg Lactated Ringer's (Lactated Ringer's) 1,000 mls @ 125 mls/hr IV .Q8H [facility] Last Admin: 08/27/18 16:55 Dose: 125 mls/hr Vancomycin HCl 1 gm/ Sodium (Chloride) 250 mls @ 166.667 mls/hr IVPB Q12 [facility]; Protocol Last Admin: 08/27/18 09:42 Dose: 166.667 mls/hr Metronidazole (Flagyl 500mg/100ml Ns) 100 mls @ 100 mls/hr IVPB Q8 [facility]; Protocol Last Admin: 08/27/18 16:50 Dose: 100 mls/hr Aztreonam 1 gm/ Sodium (Chloride) 100 mls @ 100 mls/hr IVPB Q8 [facility]; Protocol Last Admin: 08/27/18 16:50 Dose: 100 mls/hr Insulin Human Regular (Humulin R) 0 units SC ACHS [facility]; Protocol Last Admin: 08/27/18 16:51 Dose: Not Given Lactulose (Enulose) 10 gm PO DAILY PRN PRN Reason: Constipation Metformin HCl (Glucophage) 1,000 mg PO BIDWM [facility] Last Admin: 08/27/18 16:51 Dose: 1,000 mg Naproxen (Naproxen) 500 mg PO Q12 [facility] Last Admin: 08/27/18 09:44 Dose: 500 mg Ondansetron HCl (Zofran Inj) 4 mg IVP Q6 PRN PRN Reason: Nausea/Vomiting Oxycodone/Acetaminophen (Percocet 5/325 Mg Tab) 2 tab PO Q4 PRN PRN Reason: Pain, moderate (4-7) Stop: 08/28/18 09:20 Last Admin: 08/27/18 16:49 Dose: 2 tab Oxycodone/Acetaminophen (Percocet 5/325 Mg Tab) 1 tab PO Q4 PRN PRN Reason: Pain, Mild (1-3) Stop: 08/28/18 09:19 Pantoprazole Sodium (Protonix Ec Tab) 40 mg PO DAILY [facility] Last Admin: 08/27/18 09:44 Dose: 40 mg Potassium Chloride (K-Dur 20 Meq Er Tab) 20 meq PO BID [facility] Last Admin: 08/27/18 16:55 Dose: 20 meq Sitagliptin Phosphate (Januvia) 100 mg PO DAILY [facility] - Labs Labs: 08/27/18 04:35 08/27/18 04:35 PT 14.6 Seconds (9.8-13.1) H 08/23/18 04:30 INR 1.3 08/23/18 04:30 APTT 28.8 Seconds (25.6-37.1) 08/23/18 04:30 Assessment and Plan (1) Scrotal abscess Status: Acute (2) Cellulitis Status: Acute
[2018-08-28] MEDS: Aztreonam 1 GM in Sodium Chloride 0.9% 100 ML IVPB SCH ×3 (00:33→16:26)
--- NOTE | 2018-08-28 00:53 | CP.PCM.PN ---
Subjective - Date & Time of Evaluation Date of Evaluation: 08/26/18 Time of Evaluation: 07:45 - Subjective Subjective: Pt seen and assessed at bedside. Recently had a scrotal I&D done with Urology. No additional complaints, WBC count remains slightly elevated. Subjective Review of Systems: Reviewed and no additional remarkable complaints except scrotal pain and tenderness Objective Vital Signs Stable Appears: Non-toxic, No Acute Distress. Head Exam: NORMAL INSPECTION, normocephalic. Eye Exam: Normal appearance, EOMI, PERRLA. Respiratory Exam: NORMAL BREATHING PATTERN, breath sounds clear to auscultation. Cardiovascular Exam: +S1, +S2. RRR GI & Abdominal Exam: Soft, non-tender, non-distended. Neurological Exam: Alert, Awake, Oriented x3. Psychiatric exam: Normal Affect, Normal Mood Skin Exam: Normal, Warm, Dry. Assessment/Impression/Plan: 1.) Scrotal Abscess -I&D of the scrotum was done by Dr. Vogt. -WBC count down to 12.2, pt on Aztreonam and Flagyl. -Pain managed with Dilaudid and Percocet. -Monitor for increase in testicular swelling, as well as s/s of infection. -Consults input appreciated, continue current treatment. Objective - Vital Signs/Intake and Output Vital Signs (last 24 hours): Temp Pulse Resp BP Pulse Ox 97.9 F 79 18 111/72 95 08/28/18 00:27 08/28/18 00:27 08/28/18 00:27 08/28/18 00:27 08/28/18 00:27 Intake and Output: 08/27/18 08/28/18 18:59 06:59 Intake Total 1775 Output Total 10 Balance 1765 - Medications Medications: Current Medications Dextrose (Dextrose 50% Inj) 0 ml IV STAT PRN; Protocol PRN Reason: Hypoglycemia Protocol Dextrose (Glutose 15) 0 gm PO ONCE PRN; Protocol PRN Reason: Hypoglycemia Protocol Glucagon (Glucagen Diagnostic Kit) 0 mg IM STAT PRN; Protocol PRN Reason: Hypoglycemia Protocol Hydromorphone HCl (Dilaudid) 1 mg IVP Q8 PRN PRN Reason: Pain, severe (8-10) Last Admin: 08/27/18 09:40 Dose: 1 mg Lactated Ringer's (Lactated Ringer's) 1,000 mls @ 125 mls/hr IV .Q8H [facility] Last Admin: 08/27/18 16:55 Dose: 125 mls/hr Vancomycin HCl 1 gm/ Sodium (Chloride) 250 mls @ 166.667 mls/hr IVPB Q12 [facility]; Protocol Last Admin: 08/27/18 20:01 Dose: 166.667 mls/hr Metronidazole (Flagyl 500mg/100ml Ns) 100 mls @ 100 mls/hr IVPB Q8 [facility]; Protocol Last Admin: 08/27/18 16:50 Dose: 100 mls/hr Aztreonam 1 gm/ Sodium (Chloride) 100 mls @ 100 mls/hr IVPB Q8 [facility]; Protocol Last Admin: 08/28/18 00:33 Dose: 100 mls/hr Insulin Human Regular (Humulin R) 0 units SC ACHS [facility]; Protocol Last Admin: 08/27/18 16:51 Dose: Not Given Lactulose (Enulose) 10 gm PO DAILY PRN PRN Reason: Constipation Metformin HCl (Glucophage) 1,000 mg PO BIDWM [facility] Last Admin: 08/27/18 16:51 Dose: 1,000 mg Naproxen (Naproxen) 500 mg PO Q12 [facility] Last Admin: 08/27/18 20:02 Dose: 500 mg Ondansetron HCl (Zofran Inj) 4 mg IVP Q6 PRN PRN Reason: Nausea/Vomiting Oxycodone/Acetaminophen (Percocet 5/325 Mg Tab) 2 tab PO Q4 PRN PRN Reason: Pain, moderate (4-7) Stop: 08/28/18 09:20 Last Admin: 08/27/18 16:49 Dose: 2 tab Oxycodone/Acetaminophen (Percocet 5/325 Mg Tab) 1 tab PO Q4 PRN PRN Reason: Pain, Mild (1-3) Stop: 08/28/18 09:19 Pantoprazole Sodium (Protonix Ec Tab) 40 mg PO DAILY [facility] Last Admin: 08/27/18 09:44 Dose: 40 mg Potassium Chloride (K-Dur 20 Meq Er Tab) 20 meq PO BID [facility] Last Admin: 08/27/18 16:55 Dose: 20 meq Sitagliptin Phosphate (Januvia) 100 mg PO DAILY [facility] - Labs Labs: 08/27/18 04:35 08/27/18 04:35 PT 14.6 Seconds (9.8-13.1) H 08/23/18 04:30 INR 1.3 08/23/18 04:30 APTT 28.8 Seconds (25.6-37.1) 08/23/18 04:30 Assessment and Plan (1) Scrotal abscess Status: Acute
[2018-08-28] MEDS: Lactated Ringer's 1,000 ML IV SCH ×2 (01:00→12:37)
[2018-08-28] MEDS: metroNIDAZOLE 500mg/100ml NS 100 ML IVPB SCH ×3 (02:00→16:27)
[2018-08-28] MEDS: Oxycodone/Acetaminophen 5/325 mg Tab PO PRN (02:12)
[2018-08-28 06:02] LABS: HEMOGLOBIN 8.7 g/dL (12.0-18.0); MEAN CELL VOLUME 77.9 fl (80.0-94.0); MEAN CORPUSCULAR HGB CONC 33.4 g/dL (33.0-37.0); RBC 3.35 Mil/uL (4.40-5.90); RED CELL DISTRIBUTION WIDTH 13.8 % (11.5-14.5); WHITE BLOOD COUNT 11.1 K/uL (4.8-10.8)
[2018-08-28 06:17] LABS: BLOOD UREA NITROGEN 6 mg/dl (9-20); GFR NON-AFRICAN AMERICAN > 60
[2018-08-28] MEDS: Insulin Regular 100 units/ml SC SCH ×3 (06:34→18:05)
[2018-08-28] MEDS ORDERED: Potassium Chloride 20 mEq ER Tab PO ONE (08:05)
[2018-08-28] MEDS: Naproxen 500 MG TAB PO SCH (09:11)
[2018-08-28] MEDS: Pantoprazole 40 mg EC Tab PO SCH (09:16)
[2018-08-28] MEDS: Potassium Chloride 20 mEq ER Tab PO SCH ×2 (09:18→17:45)
--- NOTE | 2018-08-28 14:30 | CP.PCM.PN ---
Subjective - Date & Time of Evaluation Date of Evaluation: 08/28/18 Time of Evaluation: 09:00 - Subjective Subjective: less pain and swelling drainage persists no fever c/o pain Objective - Vital Signs/Intake and Output Vital Signs (last 24 hours): Temp Pulse Resp BP Pulse Ox 98.1 F 76 20 114/73 97 08/28/18 12:49 08/28/18 12:49 08/28/18 12:49 08/28/18 12:49 08/28/18 12:49 - Medications Medications: Current Medications Dextrose (Dextrose 50% Inj) 0 ml IV STAT PRN; Protocol PRN Reason: Hypoglycemia Protocol Dextrose (Glutose 15) 0 gm PO ONCE PRN; Protocol PRN Reason: Hypoglycemia Protocol Glucagon (Glucagen Diagnostic Kit) 0 mg IM STAT PRN; Protocol PRN Reason: Hypoglycemia Protocol Hydromorphone HCl (Dilaudid) 1 mg IVP Q8 PRN PRN Reason: Pain, severe (8-10) Last Admin: 08/27/18 09:40 Dose: 1 mg Lactated Ringer's (Lactated Ringer's) 1,000 mls @ 125 mls/hr IV .Q8H [facility] Last Admin: 08/28/18 12:37 Dose: 125 mls/hr Metronidazole (Flagyl 500mg/100ml Ns) 100 mls @ 100 mls/hr IVPB Q8 [facility]; Protocol Last Admin: 08/28/18 09:35 Dose: 100 mls/hr Aztreonam 1 gm/ Sodium (Chloride) 100 mls @ 100 mls/hr IVPB Q8 [facility]; Protocol Last Admin: 08/28/18 09:33 Dose: 100 mls/hr Insulin Human Regular (Humulin R) [address] [facility]; Protocol Last Admin: 08/28/18 06:34 Dose: Not Given Lactulose (Enulose) 10 gm PO DAILY PRN PRN Reason: Constipation Metformin HCl (Glucophage) 1,[address] [facility] Last Admin: 08/28/18 09:32 Dose: 1,000 mg Naproxen (Naproxen) 500 mg PO Q12 [facility] Last Admin: 08/28/18 09:11 Dose: 500 mg Ondansetron HCl (Zofran Inj) 4 mg IVP Q6 PRN PRN Reason: Nausea/Vomiting Pantoprazole Sodium (Protonix Ec Tab) [address] [facility] Last Admin: 08/28/18 09:16 Dose: 40 mg Potassium Chloride (K-Dur 20 Meq Er Tab) [address] [facility] Last Admin: 08/28/18 09:18 Dose: 20 meq Sitagliptin Phosphate (Januvia) [address] [facility] Last Admin: 08/28/18 09:18 Dose: 100 mg - Labs Labs: 08/28/18 05:25 08/28/18 05:25 PT 14.6 Seconds (9.8-13.1) H 08/23/18 04:30 INR 1.3 08/23/18 04:30 APTT 28.8 Seconds (25.6-37.1) 08/23/18 04:30 - Constitutional Appears: Well - Head Exam Head Exam: ATRAUMATIC, NORMAL INSPECTION, NORMOCEPHALIC - Eye Exam Eye Exam: EOMI, Normal appearance, PERRL Pupil Exam: NORMAL ACCOMODATION, PERRL - ENT Exam ENT Exam: Mucous Membranes Moist, Normal Exam - Neck Exam Neck Exam: Full ROM, Normal Inspection. absent: Lymphadenopathy - Respiratory Exam Respiratory Exam: Clear to Ausculation Bilateral, NORMAL BREATHING PATTERN - Cardiovascular Exam Cardiovascular Exam: REGULAR RHYTHM, +S1, +S2. absent: Murmur - GI/Abdominal Exam GI & Abdominal Exam: Soft, Normal Bowel Sounds. absent: Tenderness - Rectal Exam Rectal Exam: Deferred - Exam Exam: Scrotal Swelling, Testicular Tenderness - Extremities Exam Extremities Exam: Full ROM, Normal Capillary Refill, Normal Inspection. absent: Joint Swelling, Pedal Edema - Back Exam Back Exam: NORMAL INSPECTION - Neurological Exam Neurological Exam: Alert, Awake, CN II-XII Intact, Normal Gait, Oriented x3 - Psychiatric Exam Psychiatric exam: Normal Affect, Normal Mood - Skin Skin Exam: Dry, Intact, Normal Color, Warm Assessment and Plan (1) Abscess Status: Acute (2) Cellulitis of scrotum Status: Acute (3) Acute epididymitis Status: Acute (4) Diabetes mellitus, new onset Status: Acute - Assessment and Plan (Free Text) Assessment: cont iv antibiotics and wound care
[2018-08-28 16:23] VITALS: BP 108/69; PULSE 73; RESP 18; TEMP 97.2; O2SAT 96
--- NOTE | 2018-08-30 16:17 | CP.PCM.DIS ---
Provider - Provider Date of Admission: 08/22/18 23:21 Attending physician: Rosalino Escalera MD Consults: 08/22/18 22:33 Surgery [General Surgery Consult] Stat Comment: Consulting Provider: Harpreet Watts Consulting Physician: Harpreet Watts Reason for Consult: scrotall cellulitis/abscess 08/22/18 22:34 Urology Consult Stat Comment: Consulting Provider: Kalyani Vogt Consulting Physician: Kalyani Vogt Reason for Consult: scrotal cellulitis/abscess 08/23/18 12:02 Infectious Disease Consult Routine Comment: Consulting Provider: Rhoit Corado Consulting Physician: Rohit Corado Reason for Consult: scrotal abscess/cellulitis 08/26/18 11:29 Anesthesiology Consult Routine Comment: Consulting Provider: Fransisco Carrasquillo Consulting Physician: Fransisco Carrasquillo Reason for Consult: scrotal abscess; pain Time Spent in preparation of Discharge (in minutes): 30 Diagnosis - Discharge Diagnosis (1) Cellulitis of scrotum Status: Acute (2) Diabetes mellitus, new onset Status: Acute (3) Scrotal abscess Status: Acute Hospital Course - Lab Results Lab Results: Micro Results 08/22/18 11:20 Blood-Venous Blood Culture - Final NO GROWTH AFTER 5 DAYS 08/22/18 11:20 Blood-Venous Gram Stain - Final TEST NOT PERFORMED 08/22/18 21:25 Blood-Venous Blood Culture - Final NO GROWTH AFTER 5 DAYS 08/22/18 21:25 Blood-Venous Gram Stain - Final TEST NOT PERFORMED 08/23/18 12:00 Scrotum Gram Stain - Final 08/23/18 12:00 Scrotum Wound Culture - Final Klebsiella Pneumoniae Ssp Pneu 08/22/18 07:00 Urine Random Urine Culture - Final No Growth (<1,000 CFU/ML) Most Recent Lab Values WBC 11.1 K/uL (4.8-10.8) H 08/28/18 05:25 RBC 3.35 Mil/uL (4.40-5.90) L 08/28/18 05:25 Hgb 8.7 g/dL (12.0-18.0) L 08/28/18 05:25 Hct 26.1 % (35.0-51.0) L 08/28/18 05:25 MCV 77.9 fl (80.0-94.0) L 08/28/18 05:25 MCH 26.0 pg (27.0-31.0) L 08/28/18 05:25 MCHC 33.4 g/dL (33.0-37.0) 08/28/18 05:25 RDW 13.8 % (11.5-14.5) 08/28/18 05:25 Plt Count 333 K/uL (130-400) 08/28/18 05:25 MPV 6.3 fl (7.2-11.7) L 08/27/18 04:35 Neut % (Auto) 74.1 % (50.0-75.0) 08/27/18 04:35 Lymph % (Auto) 17.6 % (20.0-40.0) L 08/27/18 04:35 [place] % (Auto) 6.2 % (0.0-10.0) 08/27/18 04:35 Eos % (Auto) 2.0 % (0.0-4.0) 08/27/18 04:35 Baso % (Auto) 0.1 % (0.0-2.0) 08/27/18 04:35 Neut # (Auto) 8.2 K/uL (1.8-7.0) H 08/27/18 04:35 Lymph # (Auto) 2.0 K/uL (1.0-4.3) 08/27/18 04:35 [place] # (Auto) 0.7 K/uL (0.0-0.8) 08/27/18 04:35 Eos # (Auto) 0.2 K/uL (0.0-0.7) 08/27/18 04:35 Baso # (Auto) 0.0 K/uL (0.0-0.2) 08/27/18 04:35 Neutrophils % (Manual) 74 % (42-75) 08/22/18 21:25 Band Neutrophils % 13 % (0-2) H* 08/22/18 21:25 Lymphocytes % (Manual) 4 % (20-50) L 08/22/18 21:25 Monocytes % (Manual) 6 % (0-10) 08/22/18 21:25 Eosinophils % (Manual) 1 % (0-7) 08/22/18 21:25 Metamyelocytes % 2 % (0-0) H 08/22/18 21:25 Toxic Granulation Present 08/22/18 21:25 Platelet Estimate Normal (NORMAL) 08/22/18 21:25 Polychromasia Slight 08/22/18 21:25 PT 14.6 Seconds (9.8-13.1) H 08/23/18 04:30 INR 1.3 08/23/18 04:30 APTT 28.8 Seconds (25.6-37.1) 08/23/18 04:30 Sodium 139 mmol/l (132-148) 08/28/18 05:25 Potassium 3.4 MMOL/L (3.6-5.0) L 08/28/18 05:25 Chloride 102 mmol/L (98-107) 08/28/18 05:25 Carbon Dioxide 31 mmol/L (22-30) H 08/28/18 05:25 Anion Gap 9 (10-20) L 08/28/18 05:25 BUN 6 mg/dl (9-20) L 08/28/18 05:25 Creatinine 0.7 mg/dl (0.8-1.5) L 08/28/18 05:25 Est GFR ( Amer) > 60 08/28/18 05:25 Est GFR (Non-Af Amer) > 60 08/28/18 05:25 POC Glucose (mg/dL) 210 mg/dL (65-110) H 08/28/18 16:13 Random Glucose 146 mg/dL (75-110) H 08/28/18 05:25 Hemoglobin A1c 9.9 % (4.2-6.5) H 08/24/18 05:15 Lactic Acid 0.9 mmol/L (0.7-2.1) 08/24/18 09:35 Calcium 8.0 mg/dL (8.4-10.2) L 08/28/18 05:25 Phosphorus 2.4 mg/dl (2.5-4.5) L 08/23/18 04:30 Magnesium 1.5 MG/DL (1.6-2.3) L 08/23/18 04:30 Total Bilirubin 0.2 mg/dl (0.2-1.3) 08/27/18 04:35 AST 56 U/L (17-59) 08/27/18 04:35 ALT 56 U/L (21-72) 08/27/18 04:35 Alkaline Phosphatase 96 U/L (38-126) 08/27/18 04:35 Total Protein 5.5 G/DL (6.3-8.2) L 08/27/18 04:35 Albumin 2.4 g/dL (3.5-5.0) L 08/27/18 04:35 Globulin 3.1 gm/dL (2.2-3.9) 08/27/18 04:35 Albumin/Globulin Ratio 0.8 (1.0-2.1) L 08/27/18 04:35 Urine Color Yellow (YELLOW) 08/22/18 00:14 Urine Clarity Slighty-cloudy (Clear) 08/22/18 00:14 Urine pH 6.0 (5.0-8.0) 08/22/18 00:14 Ur Specific [place] 1.016 (1.003-1.030) 08/22/18 00:14 Urine Protein 30 mg/dL (NEGATIVE) 08/22/18 00:14 Urine Glucose (UA) >=500 mg/dL (NEGATIVE) 08/22/18 00:14 Urine Ketones Negative mg/dL (NEGATIVE) 08/22/18 00:14 Urine Blood Negative (NEGATIVE) 08/22/18 00:14 Urine Nitrate Negative (NEGATIVE) 08/22/18 00:14 Urine Bilirubin Negative (NEGATIVE) 08/22/18 00:14 Urine Urobilinogen 4.0 mg/dL (0.2-1.0) 08/22/18 00:14 Ur Leukocyte Esterase Neg [place]/uL (Negative) 08/22/18 00:14 Urine RBC (Auto) 1 /hpf (0-3) 08/22/18 00:14 Urine Microscopic WBC 9 /hpf (0-5) H 08/22/18 00:14 Ur Squamous Epith Cells 1 /hpf (0-5) 08/22/18 00:14 Urine Bacteria Rare (<OCC) 08/22/18 00:14 Hyaline Casts 0-2 /hpf (0-2) 08/22/18 00:14 Vancomycin Trough 5.3 ug/mL (5.0-10.0) 08/26/18 10:58 C.trachomatis RNA (TMA) Not detected (Not Detected) 08/22/18 07:00 N.gonorrhoeae RNA (TMA) Not detected (Not Detected) 08/22/18 07:00 Blood Type B POSITIVE 08/22/18 22:22 Blood Type Confirm B POSITIVE 08/22/18 22:53 Antibody Screen Negative 08/22/18 22:22 BBK History Checked No verified bt 08/22/18 22:22 - Hospital Course Hospital Course: This is a 33 y/o male admitted for scrotal abscess. He was started on IV antibiotics. He responded well to medications but needed further Iv antibiotics hence was evaluated for TCU . He was noted to have uncontrolled DM 2. He was given Metformin and januvia and Insulin coverage. he is to be discharged to TCU. Discharge Exam - Head Exam Head Exam: ATRAUMATIC, NORMAL INSPECTION, NORMOCEPHALIC - Eye Exam Eye Exam: Normal appearance - Respiratory Exam Respiratory Exam: Clear to PA & Lateral - Cardiovascular Exam Cardiovascular Exam: Clicks - GI/Abdominal Exam GI & Abdominal Exam: Normal Bowel Sounds - Neurological Exam Neurological exam: CN II-XII Intact - Psychiatric Exam Psychiatric exam: Normal Mood Discharge Plan - Discharge Medications Prescriptions: Aztreonam 1 Gm in NS 100mL [Azactam 1 gm] 1 gm IV Q8 #21 ml metroNIDAZOLE 500mg/100ml NS [Flagyl 500MG/100ML NS] 500 mg IVPB Q8 #21 bag Empagliflozin [Jardiance] 25 mg PO DAILY #14 tablet - Follow Up Plan Condition: FAIR Disposition: REHAB FACILITY/REHAB UNIT Instructions: Abscess Incision and Drainage (DC) Additional Instructions: admit to TCU for further Iv antibiotics. Referrals: Harpreet Watts MD [Staff Provider] - Shawn Arenas MD [Staff Provider] - Rohit Corado MD [Staff Provider] -
== END 2018-08-28 18:50 | DRG 854 ==
LOC: H.ER 20:51 → H.ERHOLD 23:21 → H.TEL 08-23 00:46
PROVIDERS: ADMIT Family Medicine; ATTEND Family Medicine
PROC: 0V950ZZ Drainage of Scrotum, Open Approach (ICD-10-PCS; 2018-08-23)
PROC: 0H9AXZZ Drainage of Inguinal Skin, External Approach (ICD-10-PCS; principal; 2018-08-23 08:00)
DX: A41.59 Other Gram-negative sepsis (principal); L03.315 Cellulitis of perineum; E87.2 Acidosis; L02.215 Cutaneous abscess of perineum; N45.1 Epididymitis; N49.2 Inflammatory disorders of scrotum; E11.65 Type 2 diabetes mellitus with hyperglycemia; J45.909 Unspecified asthma, uncomplicated; R16.1 Splenomegaly, not elsewhere classified

== ENCOUNTER 2018-08-27 14:55 | Inpatient (IN) | payer BC ==
[2018-08-28 19:04] VITALS: BMI 21.5
[2018-08-28] MEDS ORDERED: Glucagon Recombinant 1 mg Inj IM PRN (19:09)
[2018-08-28] MEDS ORDERED: Dextrose 50% SYRINGE Inj (50 ml) IVP PRN (19:09)
[2018-08-28] MEDS ORDERED: Lactated Ringer's 1,000 ML IV SCH (19:30)
[2018-08-28] MEDS ORDERED: Aztreonam 1 GM in Sodium Chloride 0.9% 100 ML IVPB SCH (21:00)
[2018-08-28] MEDS ORDERED: metroNIDAZOLE 500mg/100ml NS 100 ML IVPB SCH (21:00)
[2018-08-28] MEDS: Naproxen 500 MG TAB PO SCH (21:32)
[2018-08-28] MEDS: Lactulose 10 gm/15 ml Syrup PO SCH (21:49)
[2018-08-28] MEDS: Insulin Regular 100 units/ml SC SCH (21:49)
[2018-08-29] MEDS ORDERED: Povidone Iodine Topical 10% Sol TOP SCH (02:45)
[2018-08-29] MEDS ORDERED: Povidone Iodine Topical 10% Sol ONE (02:48)
[2018-08-29] MEDS: Oxycodone/Acetaminophen 5/325 mg Tab PO PRN (03:00)
[2018-08-29] MEDS: Insulin Regular 100 units/ml SC SCH ×4 (06:46→22:05)
[2018-08-29] MEDS: Aztreonam 1 GM in Sodium Chloride 0.9% 100 ML IVPB SCH ×2 (08:31→17:49)
[2018-08-29] MEDS: Naproxen 500 MG TAB PO SCH ×2 (08:34→22:04)
[2018-08-29] MEDS: Potassium Chloride 20 mEq ER Tab PO SCH ×2 (08:34→17:50)
[2018-08-29] MEDS: Pantoprazole 40 mg EC Tab PO SCH (08:34)
[2018-08-29] MEDS: metroNIDAZOLE 500mg/100ml NS 250 MG in Premixed IV 1 EA IVPB SCH ×2 (08:35→17:46)
[2018-08-29] MEDS: Povidone Iodine Topical 10% Sol TOP SCH ×2 (08:38→22:06)
[2018-08-29] MEDS ORDERED: Tuberculin 5 Units/0.1 ml Inj ID ONE (09:00)
[2018-08-29] MEDS: Lactulose 10 gm/15 ml Syrup PO SCH (22:06)
[2018-08-30] MEDS: metroNIDAZOLE 500mg/100ml NS 250 MG in Premixed IV 1 EA IVPB SCH ×3 (01:32→17:08)
[2018-08-30] MEDS: Aztreonam 1 GM in Sodium Chloride 0.9% 100 ML IVPB SCH ×3 (01:34→17:08)
[2018-08-30] MEDS: Oxycodone/Acetaminophen 5/325 mg Tab PO PRN (01:42)
[2018-08-30 07:54] LABS: BASO % 0.4 % (0.0-2.0); EOS # 0.3 K/uL (0.0-0.7); HEMOGLOBIN 9.8 g/dL (12.0-18.0); LYMPH # 2.4 K/uL (1.0-4.3); LYMPH % 25.4 % (20.0-40.0); MEAN CELL VOLUME 78.3 fl (80.0-94.0); MEAN CORPUSCULAR HEMOGLOBIN 26.8 pg (27.0-31.0); MEAN CORPUSCULAR HGB CONC 34.2 g/dL (33.0-37.0); MEAN PLATELET VOLUME 6.3 fl (7.2-11.7); MONO # 0.5 K/uL (0.0-0.8); MONO % 5.3 % (0.0-10.0); NEUT # 6.3 K/uL (1.8-7.0); NEUT % 65.9 % (50.0-75.0); NRBC % 0.1 % (0.0-0.0); RBC 3.66 Mil/uL (4.40-5.90); RED CELL DISTRIBUTION WIDTH 13.9 % (11.5-14.5); WHITE BLOOD COUNT 9.6 K/uL (4.8-10.8)
[2018-08-30] MEDS: Insulin Regular 100 units/ml SC SCH ×4 (08:12→21:11)
[2018-08-30 08:24] LABS: ALBUMIN 3.1 g/dL (3.5-5.0); ALT/SGPT 62 U/L (21-72); AST/SGOT 50 U/L (17-59); BLOOD UREA NITROGEN 10 mg/dl (9-20); CALCIUM 8.1 mg/dL (8.4-10.2); GFR NON-AFRICAN AMERICAN > 60
[2018-08-30] MEDS: Naproxen 500 MG TAB PO SCH ×2 (08:56→21:07)
[2018-08-30] MEDS: Pantoprazole 40 mg EC Tab PO SCH (08:57)
[2018-08-30] MEDS: Potassium Chloride 20 mEq ER Tab PO SCH ×2 (08:57→17:09)
[2018-08-30] MEDS: Povidone Iodine Topical 10% Sol TOP SCH ×2 (11:08→21:07)
--- NOTE | 2018-08-30 12:11 | CP.PCM.CON ---
History of Present Illness - History of Present Illness History of Present Illness: 33 M with recently diagnosed epididimitis and scrotal abscess requiring I and D as well as new onset DM, is now transferred to TCU for IV antibiotics and cont wound care ID consulted for antibiotic management PMH: DM epididmitis PSH: denies ALL: NKDA Social: quit smoking 1 month ago - 10+ pack yr history, denies EtOH and illicit drug use Review of Systems - Review of Systems All systems: reviewed and no additional remarkable complaints except - Constitutional Constitutional: As Per HPI - EENT Eyes: absent: As Per HPI, Blind Spots, Blurred Vision, Change in Vision, Decreased Night Vision, Diplopia, Discharge, Dry Eye, Exophthalmos, Floaters, Irritation, Itchy Eyes, Loss of Peripheral Vision, Pain, Photophobia, Requires Corrective Lenses, Sees Flashes, Spots in Vision, Tunnel Vision, Other Visual Disturbances, Loss of Vision, Other Ears: absent: As Per HPI, Decreased Hearing, Ear Discharge, Ear Pain, Tinnitus, Abnormal Hearing, Disequilibrium, Dizziness, Other Nose/Mouth/Throat: absent: As Per HPI, Epistaxis, Nasal Congestion, Nasal Discharge, Nasal Obstruction, Nasal Trauma, Nose Pain, Post Nasal Drip, Sinus Pain, Sinus Pressure, Bleeding Gums, Change in Voice, Dental Pain, Dry Mouth, Dysphagia, Halitosis, Hoarsness, Lip Swelling, Mouth Lesions, Mouth Pain, Odynophagia, Sore Throat, Throat Swelling, Tongue Swelling, Facial Pain, Neck Pain, Neck Mass, Other - Cardiovascular Cardiovascular: absent: As Per HPI, Acrocyanosis, Chest Pain, Chest Pain at Rest, Chest Pain with Activity, Claudication, Diaphoresis, Dyspnea, Dyspnea on Exertion, Edema, Irregular Heart Rhythm, Pain Radiating to Arm/Neck/Jaw, Leg Edema, Leg Ulcers, Lightheadedness, Orthopnea, Palpitations, Paroxysmal Nocturnal Dyspnea, Pedal Edema, Radiating Pain, Rapid Heart Rate, Slow Heart Rate, Syncope, Other - Respiratory Respiratory: absent: As Per HPI, Cough, Dyspnea, Hemoptysis, Dyspnea on Exertion, Wheezing, Snoring, Stridor, Pain on Inspiration, Chest Congestion, Excessive Mucous Production, Change in Mucous Color, Pain with Coughing, Other - Gastrointestinal Gastrointestinal: absent: As Per HPI, Abdominal Pain, Belching, Bloating, Change in Bowel Habits, Change in Stool Character, Coffee Ground Emesis, Constipation, Cramping, Diarrhea, Dyspepsia, Dysphagia, Early Satiety, Excessive Flatus, Fecal Incontinence, Heartburn, Hematemesis, Hematochezia, Loose Stools, Melena, Nausea, Odynophagia, Temesmus, Vomiting, Other - Genitourinary Genitourinary: As Per HPI - Musculoskeletal Musculoskeletal: absent: As Per HPI, Abnormal Gait, Arthralgias, Atrophy, Back Pain, Deformity, Joint Swelling, Limited Range of Motion, Loss of Height, Muscle Cramps, Muscle Weakness, Myalgias, Neck Pain, Numbness, Radiating Pain into Limb, Stiffness, Tingling, Other - Integumentary Integumentary: As Per HPI, Skin Pain, Wounds - Neurological Neurological: absent: As Per HPI, Abnormal Gait, Abnormal Hearing, Abnormal Movements, Abnormal Speech, Behavioral Changes, Burning Sensations, Confusion, Convulsions, Disequilibrium, Dizziness, Numbness, Focal Weakness, Frequent Falls, Headaches, Lack of Coordination, Loss of Vision, Memory Loss, Paresthesias, Radicular Pain, Restless Legs, Sensory Deficit, Syncope, Tingling, Tremor, Vertigo, Weakness, Other Visual Disturbances, Other - Psychiatric Psychiatric: absent: As Per HPI, Abnormal Sleep Pattern, Anhedonia, Anxiety, Auditory Hallucinations, Behavioral Changes, Change in Appetite, Change in Libido, Confusion, Depression, Difficulty Concentrating, Hallucinations, Homicidal Ideation, Hopelessness, Irritability, Memory Loss, Mood Swings, Panic Attacks, Paranoia, Suicidal Ideation, Visual Hallucinations, Tactile Hallucinations, Other - Endocrine Endocrine: absent: As Per HPI, Change in Body Appearance, Change in Libido, Cold Intolorance, Deepening of Voice, Excessive Sweating, Fatigue, Flushing, Heat Intolorance, Increase in Ring/Shoe/Hat Size, Palpitations, Polydipsia, Polyphagia, Polyuria, Other - Hematologic/Lymphatic Hematologic: absent: As Per HPI, Easy Bleeding, Easy Bruising, Lymphadenopathy, Other Past Patient History - Past Medical History & Family History Past Medical History?: Yes - Past Social History Smoking Status: Former Smoker - CARDIAC Hx Cardiac Disorders: No - PULMONARY Hx Respiratory Disorders: Yes Hx Asthma: Yes - NEUROLOGICAL Hx Neurological Disorder: No - HEENT Hx HEENT Problems: No - RENAL Hx Chronic Kidney Disease: No - ENDOCRINE/METABOLIC Hx Endocrine Disorders: Yes Hx Diabetes Mellitus Type 2: Yes - HEMATOLOGICAL/ONCOLOGICAL Hx Blood Disorders: No Hx AIDS: No Hx Human Immunodeficiency Virus (HIV): No - INTEGUMENTARY Hx Dermatological Problems: No - MUSCULOSKELETAL/RHEUMATOLOGICAL Hx Falls: No - GASTROINTESTINAL Hx Gastrointestinal Disorders: No - GENITOURINARY/GYNECOLOGICAL Hx Genitourinary Disorders: Yes Other/Comment: Epididymitis a month ago - PSYCHIATRIC Hx Substance Use: No - SURGICAL HISTORY Hx Surgeries: No - ANESTHESIA Hx Anesthesia: Yes Hx Anesthesia Reactions: No Meds Allergies/Adverse Reactions: Allergies Allergy/AdvReac Type Severity Reaction Status Date / Time piperacillin [From Zosyn] Allergy RASH Verified 08/28/18 19:01 tazobactam [From Zosyn] Allergy RASH Verified 08/28/18 19:01 - Medications Medications: Current Medications Dextrose (Dextrose 50% Inj) 50 ml IVP PRN PRN PRN Reason: Hypoglycemia Glucagon (Glucagen Diagnostic Kit) 1 mg IM PRN PRN PRN Reason: Hypoglycemia Aztreonam 1 gm/ Sodium (Chloride) 100 mls @ 100 mls/hr IVPB Q8 [facility]; Protocol Last Admin: 08/30/18 08:55 Dose: 100 mls/hr Metronidazole 250 mg/ (Miscellaneous) 50 mls @ 50 mls/hr IVPB Q8 [facility]; Protocol Last Admin: 08/30/18 08:56 Dose: 50 mls/hr Insulin Human Regular (Humulin R) 0 units SC ACHS [facility]; Protocol Last Admin: 08/30/18 08:12 Dose: Not Given Lactulose (Enulose) 10 gm PO HS [facility] Last Admin: 08/29/18 22:06 Dose: Not Given Metformin HCl (Glucophage) 1,000 mg PO BIDWM [facility] Last Admin: 08/30/18 08:57 Dose: 1,000 mg Naproxen (Naproxen) 500 mg PO Q12 [facility] Last Admin: 08/30/18 08:56 Dose: 500 mg Ondansetron HCl (Zofran Inj) 4 mg IVP Q6 PRN PRN Reason: Nausea/Vomiting Oxycodone/Acetaminophen (Percocet 5/325 Mg Tab) 1 tab PO Q4 PRN PRN Reason: Pain, moderate (4-7) Stop: 09/01/18 02:33 Last Admin: 08/30/18 01:42 Dose: 1 tab Pantoprazole Sodium (Protonix Ec Tab) 40 mg PO DAILY [facility] Last Admin: 08/30/18 08:57 Dose: 40 mg Potassium Chloride (K-Dur 20 Meq Er Tab) 20 meq PO BID [facility] Last Admin: 08/30/18 08:57 Dose: 20 meq Povidone Iodine (Betadine 10% Topical Soln) 10 ml TOP Q12H [facility] Last Admin: 08/30/18 11:08 Dose: 1 unit Sitagliptin Phosphate (Januvia) 100 mg PO DAILY [facility] Last Admin: 08/30/18 08:57 Dose: 100 mg Physical Exam - Constitutional Appears: No Acute Distress, Chronically Ill - Head Exam Head Exam: ATRAUMATIC, NORMOCEPHALIC - Eye Exam Eye Exam: absent: Scleral icterus - ENT Exam ENT Exam: Mucous Membranes Dry, Normal External Ear Exam - Neck Exam Neck exam: Negative for: Lymphadenopathy - Respiratory Exam Respiratory Exam: Decreased Breath Sounds, Clear to Auscultation Bilateral - Cardiovascular Exam Cardiovascular Exam: REGULAR RHYTHM, +S1, +S2 - GI/Abdominal Exam GI & Abdominal Exam: Diminished Bowel Sounds, Distended, Soft. absent: Tenderness - Rectal Exam Rectal Exam: Deferred - Exam Exam: Scrotal Swelling. absent: Uretheral Discharge - Extremities Exam Extremities exam: Positive for: pedal pulses present. Negative for: calf tenderness, pedal edema, tenderness - Back Exam Back exam: absent: CVA tenderness (L), CVA tenderness (R) - Neurological Exam Neurological exam: Alert, CN II-XII Intact, Oriented x3, Reflexes Normal - Psychiatric Exam Psychiatric exam: Normal Mood - Skin Skin Exam: Dry Results - Vital Signs Recent Vital Signs: Last Vital Signs Temp 97.6 F 08/30/18 08:44 Pulse 70 08/30/18 08:44 Resp 20 08/30/18 08:44 BP 108/69 08/30/18 08:44 Pulse Ox 98 08/30/18 08:44 - Labs Result Diagrams: 08/30/18 06:30 08/30/18 06:30 Labs: Laboratory Results - last 24 hr 08/28/18 08/29/18 08/29/18 21:25 11:25 16:31 WBC RBC Hgb Hct MCV MCH MCHC RDW Plt Count MPV Neut % (Auto) Lymph % (Auto) [place] % (Auto) Eos % (Auto) Baso % (Auto) Neut # (Auto) Lymph # (Auto) [place] # (Auto) Eos # (Auto) Baso # (Auto) Sodium Potassium Chloride Carbon Dioxide Anion Gap BUN Creatinine Est GFR ( Amer) Est GFR (Non-Af Amer) POC Glucose (mg/dL) 100 126 H 143 H Random Glucose Calcium Total Bilirubin AST ALT Alkaline Phosphatase Total Protein Albumin Globulin Albumin/Globulin Ratio 08/29/18 08/30/18 08/30/18 21:20 06:30 06:30 WBC 9.6 RBC 3.66 L Hgb 9.8 L Hct 28.6 L MCV 78.3 L MCH 26.8 L MCHC 34.2 RDW 13.9 Plt Count 404 H MPV 6.3 L Neut % (Auto) 65.9 Lymph % (Auto) 25.4 [place] % (Auto) 5.3 Eos % (Auto) 3.0 Baso % (Auto) 0.4 Neut # (Auto) 6.3 Lymph # (Auto) 2.4 [place] # (Auto) 0.5 Eos # (Auto) 0.3 Baso # (Auto) 0.0 Sodium 137 Potassium 3.9 Chloride 101 Carbon Dioxide 28 Anion Gap 12 BUN 10 Creatinine 0.7 L Est GFR ( Amer) > 60 Est GFR (Non-Af Amer) > 60 POC Glucose (mg/dL) 156 H Random Glucose 98 Calcium 8.1 L Total Bilirubin 0.3 AST 50 ALT 62 Alkaline Phosphatase 90 Total Protein 6.2 L Albumin 3.1 L D Globulin 3.1 Albumin/Globulin Ratio 1.0 Assessment & Plan (1) Abscess Status: Acute (2) Acute epididymitis Status: Acute (3) Cellulitis Status: Acute (4) Cellulitis of scrotum Status: Acute (5) Diabetes mellitus, new onset Status: Acute (6) Hyperglycemia Status: Acute (7) Scrotal abscess Status: Acute - Assessment and Plan (Free Text) Assessment: 33 M with recently diagnosed epididimitis and scrotal abscess requiring I and D as well as new onset DM, is now transferred to TCU for IV antibiotics and cont wound care ID consulted for antibiotic management He grew Klebs from abscess - had ? allergy to Zosyn ( rash ) will cont current iv rx and wound care
[2018-08-30] MEDS: Lactulose 10 gm/15 ml Syrup PO SCH (21:09)
[2018-08-31] MEDS: metroNIDAZOLE 500mg/100ml NS 250 MG in Premixed IV 1 EA IVPB SCH ×3 (01:53→16:30)
[2018-08-31] MEDS: Aztreonam 1 GM in Sodium Chloride 0.9% 100 ML IVPB SCH ×3 (01:53→16:29)
[2018-08-31] MEDS: Oxycodone/Acetaminophen 5/325 mg Tab PO PRN (02:02)
--- NOTE | 2018-08-31 02:10 | CP.PCM.PN ---
Subjective - Date & Time of Evaluation Date of Evaluation: 08/30/18 Time of Evaluation: 11:45 - Subjective Subjective: Pt seen and assessed at bedside. No new complaints. States improving pain in scrotum. Subjective Review of Systems: reviewed and no additional remarkable complaints except intermittent mild scrotal pain. Objective Vital Signs Stable Appears: Non-toxic, No Acute Distress. Head Exam: NORMAL INSPECTION, normocephalic. Eye Exam: Normal appearance, PERRLA, EOMI. Respiratory Exam: Respirations easy, non-labored, breath sounds clear to auscultation. Cardiovascular Exam: +S1, +S2, RRR. GI & Abdominal Exam: Soft, non-tender, non-distended. Neurological Exam: Alert, Awake, Oriented x3. Psychiatric exam: Normal Affect, Normal Mood Skin Exam: Normal Color, Warm, dry. Assessment/Impression/Plan: 1.) Epididymitis -Continue Azactam IVPB. -Consults appreciated input. -WBC this morning was 9.6 -monitor for leukocytosis. -Site care at area of previous I&D. -continue current tx. Objective - Vital Signs/Intake and Output Vital Signs (last 24 hours): Temp Pulse Resp BP Pulse Ox 98.3 F 83 20 112/70 99 08/30/18 21:28 08/30/18 21:28 08/30/18 21:28 08/30/18 21:28 08/30/18 21:28 - Medications Medications: Current Medications Dextrose (Dextrose 50% Inj) 50 ml IVP PRN PRN PRN Reason: Hypoglycemia Glucagon (Glucagen Diagnostic Kit) 1 mg IM PRN PRN PRN Reason: Hypoglycemia Aztreonam 1 gm/ Sodium (Chloride) 100 mls @ 100 mls/hr IVPB Q8 [facility]; Protocol Last Admin: 08/31/18 01:53 Dose: 100 mls/hr Metronidazole 250 mg/ (Miscellaneous) 50 mls @ 50 mls/hr IVPB Q8 [facility]; Protocol Last Admin: 08/31/18 01:53 Dose: 50 mls/hr Insulin Human Regular (Humulin R) 0 units SC ACHS [facility]; Protocol Last Admin: 08/30/18 21:11 Dose: Not Given Lactulose (Enulose) 10 gm PO [facility] Last Admin: 08/30/18 21:09 Dose: Not Given Metformin HCl (Glucophage) 1,000 mg PO BIDWM [facility] Last Admin: 08/30/18 17:09 Dose: 1,000 mg Naproxen (Naproxen) 500 mg PO Q12 [facility] Last Admin: 08/30/18 21:07 Dose: 500 mg Ondansetron HCl (Zofran Inj) 4 mg IVP Q6 PRN PRN Reason: Nausea/Vomiting Oxycodone/Acetaminophen (Percocet 5/325 Mg Tab) 1 tab PO Q4 PRN PRN Reason: Pain, moderate (4-7) Stop: 09/01/18 02:33 Last Admin: 08/31/18 02:02 Dose: 1 tab Pantoprazole Sodium (Protonix Ec Tab) 40 mg PO DAILY [facility] Last Admin: 08/30/18 08:57 Dose: 40 mg Potassium Chloride (K-Dur 20 Meq Er Tab) 20 meq PO BID [facility] Last Admin: 08/30/18 17:09 Dose: 20 meq Povidone Iodine (Betadine 10% Topical Soln) 10 ml TOP Q12H [facility] Last Admin: 08/30/18 21:07 Dose: 1 unit Sitagliptin Phosphate (Januvia) 100 mg PO DAILY [facility] Last Admin: 08/30/18 08:57 Dose: 100 mg - Labs Labs: 08/30/18 06:30 08/30/18 06:30 Assessment and Plan (1) Acute epididymitis Status: Acute
--- NOTE | 2018-08-31 02:16 | CP.PCM.HP ---
History of Present Illness - History of Present Illness History of Present Illness: CC: Scrotal pain and swelling HPI: 33 y/o Male Pt with a PMH of Epididymitis and Asthma was recently transferred to TCU s/p hospitalization at [facility] (formerly [facility]) for epididymitis. While hospitalized, the pt was treated with IV antibiotics, and has an incision and drainage done. At present, he is being treated in TCU for antibiotics and incision site care of the scrotum. PMH: Epididymitis and Asthma Allergies: Piperacillin, Tazobactam Subjective Review of Systems: reviewed and no additional remarkable complaints except intermittent scrotal pain. Objective Vital Signs Stable Appears: Non-toxic, No Acute Distress. Head Exam: NORMAL INSPECTION, normocephalic. Eye Exam: Normal appearance, PERRLA, EOMI. Respiratory Exam: Respirations easy, non-labored, breath sounds clear to auscultation. Cardiovascular Exam: +S1, +S2, RRR. GI & Abdominal Exam: Soft, non-tender, non-distended. Neurological Exam: Alert, Awake, Oriented x3. Psychiatric exam: Normal Affect, Normal Mood Skin Exam: Normal Color, Warm, dry. Assessment/Impression/Plan: 1.) Epididymitis -On Azactam IVPB. -Consults appreciated input. -monitor for leukocytosis. -Site care at area of previous I&D. -continue current tx. Present on Admission - Present on Admission Any Indicators Present on Admission: No Past Patient History - Past Medical History & Family History Past Medical History?: Yes - Past Social History Smoking Status: Former Smoker - CARDIAC Hx Cardiac Disorders: No - PULMONARY Hx Respiratory Disorders: Yes Hx Asthma: Yes - NEUROLOGICAL Hx Neurological Disorder: No - HEENT Hx HEENT Problems: No - RENAL Hx Chronic Kidney Disease: No - ENDOCRINE/METABOLIC Hx Endocrine Disorders: Yes Hx Diabetes Mellitus Type 2: Yes - HEMATOLOGICAL/ONCOLOGICAL Hx Blood Disorders: No Hx AIDS: No Hx Human Immunodeficiency Virus (HIV): No - INTEGUMENTARY Hx Dermatological Problems: No - MUSCULOSKELETAL/RHEUMATOLOGICAL Hx Falls: No - GASTROINTESTINAL Hx Gastrointestinal Disorders: No - GENITOURINARY/GYNECOLOGICAL Hx Genitourinary Disorders: Yes Other/Comment: Epididymitis a month ago - PSYCHIATRIC Hx Substance Use: No - SURGICAL HISTORY Hx Surgeries: No - ANESTHESIA Hx Anesthesia: Yes Hx Anesthesia Reactions: No Meds Allergies/Adverse Reactions: Allergies Allergy/AdvReac Type Severity Reaction Status Date / Time piperacillin [From Zosyn] Allergy RASH Verified 08/28/18 19:01 tazobactam [From Zosyn] Allergy RASH Verified 08/28/18 19:01 Results - Vital Signs Recent Vital Signs: Last Vital Signs Temp 98.3 F 08/30/18 21:28 Pulse 83 08/30/18 21:28 Resp 20 08/30/18 21:28 BP 112/70 08/30/18 21:28 Pulse Ox 99 08/30/18 21:28 - Labs Result Diagrams: 08/30/18 06:30 08/30/18 06:30 Labs: Laboratory Results - last 24 hr 08/30/18 08/30/18 08/30/18 06:11 06:30 06:30 WBC 9.6 RBC 3.66 L Hgb 9.8 L Hct 28.6 L MCV 78.3 L MCH 26.8 L MCHC 34.2 RDW 13.9 Plt Count 404 H MPV 6.3 L Neut % (Auto) 65.9 Lymph % (Auto) 25.4 [place] % (Auto) 5.3 Eos % (Auto) 3.0 Baso % (Auto) 0.4 Neut # (Auto) 6.3 Lymph # (Auto) 2.4 [place] # (Auto) 0.5 Eos # (Auto) 0.3 Baso # (Auto) 0.0 Sodium 137 Potassium 3.9 Chloride 101 Carbon Dioxide 28 Anion Gap 12 BUN 10 Creatinine 0.7 L Est GFR ( Amer) > 60 Est GFR (Non-Af Amer) > 60 POC Glucose (mg/dL) 103 Random Glucose 98 Calcium 8.1 L Total Bilirubin 0.3 AST 50 ALT 62 Alkaline Phosphatase 90 Total Protein 6.2 L Albumin 3.1 L D Globulin 3.1 Albumin/Globulin Ratio 1.0 08/30/18 08/30/18 08/30/18 11:17 16:57 21:02 WBC RBC Hgb Hct MCV MCH MCHC RDW Plt Count MPV Neut % (Auto) Lymph % (Auto) [place] % (Auto) Eos % (Auto) Baso % (Auto) Neut # (Auto) Lymph # (Auto) [place] # (Auto) Eos # (Auto) Baso # (Auto) Sodium Potassium Chloride Carbon Dioxide Anion Gap BUN Creatinine Est GFR ( Amer) Est GFR (Non-Af Amer) POC Glucose (mg/dL) 187 H 120 H 175 H Random Glucose Calcium Total Bilirubin AST ALT Alkaline Phosphatase Total Protein Albumin Globulin Albumin/Globulin Ratio Assessment & Plan (1) Acute epididymitis Status: Acute
[2018-08-31] MEDS: Insulin Regular 100 units/ml SC SCH ×4 (06:56→21:21)
[2018-08-31 07:47] LABS: BASO % 0.4 % (0.0-2.0); EOS # 0.2 K/uL (0.0-0.7); EOS % 2.7 % (0.0-4.0); HEMOGLOBIN 10.2 g/dL (12.0-18.0); LYMPH # 2.2 K/uL (1.0-4.3); LYMPH % 24.7 % (20.0-40.0); MEAN CELL VOLUME 79.3 fl (80.0-94.0); MEAN CORPUSCULAR HEMOGLOBIN 26.9 pg (27.0-31.0); MEAN CORPUSCULAR HGB CONC 33.9 g/dL (33.0-37.0); MEAN PLATELET VOLUME 6.2 fl (7.2-11.7); MONO # 0.5 K/uL (0.0-0.8); MONO % 5.4 % (0.0-10.0); NEUT # 5.8 K/uL (1.8-7.0); NEUT % 66.8 % (50.0-75.0); NRBC % 0.1 % (0.0-0.0); RBC 3.79 Mil/uL (4.40-5.90); RED CELL DISTRIBUTION WIDTH 14.2 % (11.5-14.5); WHITE BLOOD COUNT 8.7 K/uL (4.8-10.8)
[2018-08-31 08:25] LABS: ALBUMIN 3.2 g/dL (3.5-5.0); ALT/SGPT 52 U/L (21-72); AST/SGOT 38 U/L (17-59); BLOOD UREA NITROGEN 14 mg/dl (9-20); CALCIUM 8.8 mg/dL (8.4-10.2); GFR NON-AFRICAN AMERICAN > 60
[2018-08-31] MEDS: Povidone Iodine Topical 10% Sol TOP SCH ×2 (09:04→21:18)
[2018-08-31] MEDS: Pantoprazole 40 mg EC Tab PO SCH (09:06)
[2018-08-31] MEDS: Naproxen 500 MG TAB PO SCH ×2 (09:06→21:18)
[2018-08-31] MEDS: Potassium Chloride 20 mEq ER Tab PO SCH ×2 (09:06→16:27)
--- NOTE | 2018-08-31 10:00 | CP.PCM.PN ---
Subjective - Date & Time of Evaluation Date of Evaluation: 08/31/18 Time of Evaluation: 09:59 - Subjective Subjective: urology Pt sen today wound site healing Dependant scrotal opening draining less. No more active intervention at this time Objective - Vital Signs/Intake and Output Vital Signs (last 24 hours): Temp Pulse Resp BP Pulse Ox 98.3 F 80 20 109/72 98 08/31/18 07:48 08/31/18 07:48 08/31/18 07:48 08/31/18 07:48 08/31/18 07:48 - Medications Medications: Current Medications Dextrose (Dextrose 50% Inj) 50 ml IVP PRN PRN PRN Reason: Hypoglycemia Glucagon (Glucagen Diagnostic Kit) 1 mg IM PRN PRN PRN Reason: Hypoglycemia Aztreonam 1 gm/ Sodium (Chloride) 100 mls @ 100 mls/hr IVPB Q8 [facility]; Protocol Last Admin: 08/31/18 09:04 Dose: 100 mls/hr Metronidazole 250 mg/ (Miscellaneous) 50 mls @ 50 mls/hr IVPB Q8 [facility]; Protocol Last Admin: 08/31/18 09:05 Dose: 50 mls/hr Insulin Human Regular (Humulin R) 0 units SC ACHS [facility]; Protocol Last Admin: 08/31/18 06:56 Dose: Not Given Lactulose (Enulose) 10 gm PO HS [facility] Last Admin: 08/30/18 21:09 Dose: Not Given Metformin HCl (Glucophage) 1,000 mg PO BIDWM [facility] Last Admin: 08/31/18 09:06 Dose: 1,000 mg Naproxen (Naproxen) 500 mg PO Q12 [facility] Last Admin: 08/31/18 09:06 Dose: 500 mg Ondansetron HCl (Zofran Inj) 4 mg IVP Q6 PRN PRN Reason: Nausea/Vomiting Oxycodone/Acetaminophen (Percocet 5/325 Mg Tab) 1 tab PO Q4 PRN PRN Reason: Pain, moderate (4-7) Stop: 09/01/18 02:33 Last Admin: 08/31/18 02:02 Dose: 1 tab Pantoprazole Sodium (Protonix Ec Tab) 40 mg PO DAILY [facility] Last Admin: 08/31/18 09:06 Dose: 40 mg Potassium Chloride (K-Dur 20 Meq Er Tab) 20 meq PO BID [facility] Last Admin: 08/31/18 09:06 Dose: 20 meq Povidone Iodine (Betadine 10% Topical Soln) 10 ml TOP Q12H [facility] Last Admin: 08/31/18 09:04 Dose: 1 unit Sitagliptin Phosphate (Januvia) 100 mg PO DAILY [facility] Last Admin: 08/31/18 09:06 Dose: 100 mg - Labs Labs: 08/31/18 07:15 08/31/18 07:15
--- NOTE | 2018-08-31 19:58 | CP.PCM.PN ---
Subjective - Date & Time of Evaluation Date of Evaluation: 08/31/18 Time of Evaluation: 10:00 - Subjective Subjective: patient seen and examined at bedside. Interim events noted No complaints offered at this time denies cp/sob/fever/chills. available diagnostic data reviewed Review of Systems All systems: reviewed and no additional remarkable complaints except mentioned above Objective Vital Signs Stable - Constitutional Appears: Non-toxic, No Acute Distress Head Exam: NORMAL INSPECTION Eye Exam: Normal appearance Respiratory Exam: NORMAL BREATHING PATTERN Cardiovascular Exam: +S1, +S2 GI & Abdominal Exam: Soft Neurological Exam: Alert, Awake Psychiatric exam: Normal Affect, Normal Mood Skin Exam: Normal Color, Warm Assessment and Plan monitor vitals monitor labs Cont meds Cont tx consultants appreciated input rest of plan as ordered Objective - Vital Signs/Intake and Output Vital Signs (last 24 hours): Temp Pulse Resp BP Pulse Ox 98.0 F 79 20 103/67 97 08/31/18 16:42 08/31/18 16:42 08/31/18 16:42 08/31/18 16:42 08/31/18 16:42 - Medications Medications: Current Medications Dextrose (Dextrose 50% Inj) 50 ml IVP PRN PRN PRN Reason: Hypoglycemia Glucagon (Glucagen Diagnostic Kit) 1 mg IM PRN PRN PRN Reason: Hypoglycemia Aztreonam 1 gm/ Sodium (Chloride) 100 mls @ 100 mls/hr IVPB Q8 [facility]; Protocol Last Admin: 08/31/18 16:29 Dose: 100 mls/hr Metronidazole 250 mg/ (Miscellaneous) 50 mls @ 50 mls/hr IVPB Q8 [facility]; Protocol Last Admin: 08/31/18 16:30 Dose: 50 mls/hr Insulin Human Regular (Humulin R) 0 units SC ACHS [facility]; Protocol Last Admin: 08/31/18 16:28 Dose: 1 unit Lactulose (Enulose) 10 gm PO HS [facility] Last Admin: 08/30/18 21:09 Dose: Not Given Metformin HCl (Glucophage) 1,000 mg PO BIDWM [facility] Last Admin: 08/31/18 16:27 Dose: 1,000 mg Naproxen (Naproxen) 500 mg PO Q12 [facility] Last Admin: 08/31/18 09:06 Dose: 500 mg Ondansetron HCl (Zofran Inj) 4 mg IVP Q6 PRN PRN Reason: Nausea/Vomiting Oxycodone/Acetaminophen (Percocet 5/325 Mg Tab) 1 tab PO Q4 PRN PRN Reason: Pain, moderate (4-7) Stop: 09/01/18 02:33 Last Admin: 08/31/18 02:02 Dose: 1 tab Pantoprazole Sodium (Protonix Ec Tab) 40 mg PO DAILY [facility] Last Admin: 08/31/18 09:06 Dose: 40 mg Potassium Chloride (K-Dur 20 Meq Er Tab) 20 meq PO BID [facility] Last Admin: 08/31/18 16:27 Dose: 20 meq Povidone Iodine (Betadine 10% Topical Soln) 10 ml TOP Q12H [facility] Last Admin: 08/31/18 09:04 Dose: 1 unit Sitagliptin Phosphate (Januvia) 100 mg PO DAILY [facility] Last Admin: 08/31/18 09:06 Dose: 100 mg - Labs Labs: 08/31/18 07:15 08/31/18 07:15 Assessment and Plan (1) Abscess Status: Acute (2) Acute epididymitis Status: Acute (3) Cellulitis Status: Acute (4) Diabetes mellitus, new onset Status: Acute
[2018-08-31] MEDS: Lactulose 10 gm/15 ml Syrup PO SCH (21:20)
[2018-09-01] MEDS: Aztreonam 1 GM in Sodium Chloride 0.9% 100 ML IVPB SCH ×3 (01:14→17:25)
[2018-09-01] MEDS: metroNIDAZOLE 500mg/100ml NS 250 MG in Premixed IV 1 EA IVPB SCH ×3 (01:19→17:25)
[2018-09-01] MEDS: Insulin Regular 100 units/ml SC SCH ×4 (06:43→21:51)
[2018-09-01] MEDS: Potassium Chloride 20 mEq ER Tab PO SCH ×2 (08:23→17:25)
[2018-09-01] MEDS: Pantoprazole 40 mg EC Tab PO SCH (08:23)
[2018-09-01] MEDS: Naproxen 500 MG TAB PO SCH ×2 (08:24→21:50)
[2018-09-01] MEDS: Povidone Iodine Topical 10% Sol TOP SCH ×2 (08:45→21:50)
[2018-09-01] MEDS ORDERED: Oxycodone/Acetaminophen 5/325 mg Tab PO PRN (11:55)
[2018-09-01] MEDS: Lactulose 10 gm/15 ml Syrup PO SCH (21:51)
[2018-09-02] MEDS: metroNIDAZOLE 500mg/100ml NS 250 MG in Premixed IV 1 EA IVPB SCH ×3 (01:48→16:46)
[2018-09-02] MEDS: Aztreonam 1 GM in Sodium Chloride 0.9% 100 ML IVPB SCH ×3 (01:49→16:45)
[2018-09-02] MEDS: Insulin Regular 100 units/ml SC SCH ×4 (06:40→22:00)
[2018-09-02] MEDS: Potassium Chloride 20 mEq ER Tab PO SCH ×2 (08:50→16:48)
[2018-09-02] MEDS: Pantoprazole 40 mg EC Tab PO SCH (08:51)
[2018-09-02] MEDS: Naproxen 500 MG TAB PO SCH ×2 (08:51→21:45)
[2018-09-02] MEDS: Povidone Iodine Topical 10% Sol TOP SCH ×2 (08:54→21:44)
--- NOTE | 2018-09-02 11:35 | CP.PCM.PN ---
Subjective - Date & Time of Evaluation Date of Evaluation: 09/02/18 Time of Evaluation: 08:00 - Subjective Subjective: less pain no drainage no fever Objective - Vital Signs/Intake and Output Vital Signs (last 24 hours): Temp Pulse Resp BP Pulse Ox 97.6 F 75 20 106/72 98 09/02/18 08:12 09/02/18 08:12 09/02/18 08:12 09/02/18 08:12 09/02/18 08:12 - Medications Medications: Current Medications Dextrose (Dextrose 50% Inj) 50 ml IVP PRN PRN PRN Reason: Hypoglycemia Glucagon (Glucagen Diagnostic Kit) 1 mg IM PRN PRN PRN Reason: Hypoglycemia Aztreonam 1 gm/ Sodium (Chloride) 100 mls @ 100 mls/hr IVPB Q8 [facility]; Protocol Last Admin: 09/02/18 08:50 Dose: 100 mls/hr Metronidazole 250 mg/ (Miscellaneous) 50 mls @ 50 mls/hr IVPB Q8 [facility]; Protocol Last Admin: 09/02/18 08:50 Dose: 50 mls/hr Insulin Human Regular (Humulin R) 0 units SC ACHS [facility]; Protocol Last Admin: 09/02/18 06:40 Dose: Not Given Lactulose (Enulose) 10 gm PO HS [facility] Last Admin: 09/01/18 21:51 Dose: Not Given Metformin HCl (Glucophage) 1,000 mg PO BIDWM [facility] Last Admin: 09/02/18 08:51 Dose: 1,000 mg Naproxen (Naproxen) 500 mg PO Q12 [facility] Last Admin: 09/02/18 08:51 Dose: 500 mg Ondansetron HCl (Zofran Inj) 4 mg IVP Q6 PRN PRN Reason: Nausea/Vomiting Oxycodone/Acetaminophen (Percocet 5/325 Mg Tab) 1 tab PO Q4 PRN PRN Reason: Pain, moderate (4-7) Stop: 09/04/18 11:56 Pantoprazole Sodium (Protonix Ec Tab) 40 mg PO DAILY [facility] Last Admin: 09/02/18 08:51 Dose: 40 mg Potassium Chloride (K-Dur 20 Meq Er Tab) 20 meq PO BID [facility] Last Admin: 09/02/18 08:50 Dose: 20 meq Povidone Iodine (Betadine 10% Topical Soln) 10 ml TOP Q12H [facility] Last Admin: 09/02/18 08:54 Dose: 1 unit Sitagliptin Phosphate (Januvia) 100 mg PO DAILY [facility] Last Admin: 09/02/18 08:51 Dose: 100 mg - Labs Labs: 08/31/18 07:15 08/31/18 07:15 - Constitutional Appears: Non-toxic - Head Exam Head Exam: ATRAUMATIC, NORMAL INSPECTION, NORMOCEPHALIC - Eye Exam Eye Exam: EOMI, Normal appearance, PERRL Pupil Exam: NORMAL ACCOMODATION, PERRL - ENT Exam ENT Exam: Mucous Membranes Moist, Normal Exam - Neck Exam Neck Exam: Full ROM, Normal Inspection. absent: Lymphadenopathy - Respiratory Exam Respiratory Exam: Clear to Ausculation Bilateral, NORMAL BREATHING PATTERN - Cardiovascular Exam Cardiovascular Exam: REGULAR RHYTHM, +S1, +S2. absent: Murmur - GI/Abdominal Exam GI & Abdominal Exam: Soft, Normal Bowel Sounds. absent: Tenderness - Rectal Exam Rectal Exam: Deferred - Exam Exam: Scrotal Swelling, Testicular Tenderness - Extremities Exam Extremities Exam: Full ROM, Normal Capillary Refill, Normal Inspection. absent: Joint Swelling, Pedal Edema - Back Exam Back Exam: NORMAL INSPECTION - Neurological Exam Neurological Exam: Alert, Awake, CN II-XII Intact, Normal Gait, Oriented x3 - Psychiatric Exam Psychiatric exam: Normal Affect, Normal Mood - Skin Skin Exam: Dry, Intact, Normal Color, Warm Assessment and Plan (1) Abscess Status: Acute (2) Acute epididymitis Status: Acute (3) Cellulitis Status: Acute (4) Cellulitis of scrotum Status: Acute (5) Diabetes mellitus, new onset Status: Acute (6) Hyperglycemia Status: Acute (7) Scrotal abscess Status: Acute - Assessment and Plan (Free Text) Assessment: improving slowly cont rx possible d/c on Friday
[2018-09-02] MEDS: Lactulose 10 gm/15 ml Syrup PO SCH (21:45)
[2018-09-03] MEDS: metroNIDAZOLE 500mg/100ml NS 250 MG in Premixed IV 1 EA IVPB SCH ×3 (00:43→19:40)
[2018-09-03] MEDS: Aztreonam 1 GM in Sodium Chloride 0.9% 100 ML IVPB SCH ×3 (01:56→17:37)
[2018-09-03] MEDS: Insulin Regular 100 units/ml SC SCH ×4 (06:38→21:14)
[2018-09-03] MEDS: Naproxen 500 MG TAB PO SCH ×2 (09:50→21:10)
[2018-09-03] MEDS: Potassium Chloride 20 mEq ER Tab PO SCH ×2 (09:50→19:40)
[2018-09-03] MEDS: Pantoprazole 40 mg EC Tab PO SCH (09:57)
[2018-09-03] MEDS: Povidone Iodine Topical 10% Sol TOP SCH ×2 (10:00→21:12)
--- NOTE | 2018-09-03 18:47 | CP.PCM.PN ---
Subjective - Date & Time of Evaluation Date of Evaluation: 09/03/18 Time of Evaluation: 10:30 - Subjective Subjective: patient seen and examined at bedside. Interim events noted No complaints offered at this time denies cp/sob/fever/chills. available diagnostic data reviewed Review of Systems All systems: reviewed and no additional remarkable complaints except mentioned above Objective Vital Signs Stable - Constitutional Appears: Non-toxic, No Acute Distress Head Exam: NORMAL INSPECTION Eye Exam: Normal appearance Respiratory Exam: NORMAL BREATHING PATTERN Cardiovascular Exam: +S1, +S2 GI & Abdominal Exam: Soft Neurological Exam: Alert, Awake Psychiatric exam: Normal Affect, Normal Mood Skin Exam: Normal Color, Warm Assessment and Plan monitor vitals monitor labs Cont meds Cont tx consultants appreciated input dispo planning rest of plan as ordered Objective - Vital Signs/Intake and Output Vital Signs (last 24 hours): Temp Pulse Resp BP Pulse Ox 98.4 F 86 20 102/68 94 L 09/03/18 16:19 09/03/18 16:19 09/03/18 16:19 09/03/18 16:19 09/03/18 16:19 - Medications Medications: Current Medications Dextrose (Dextrose 50% Inj) 50 ml IVP PRN PRN PRN Reason: Hypoglycemia Glucagon (Glucagen Diagnostic Kit) 1 mg IM PRN PRN PRN Reason: Hypoglycemia Aztreonam 1 gm/ Sodium (Chloride) 100 mls @ 100 mls/hr IVPB Q8 [facility]; Protocol Last Admin: 09/03/18 17:37 Dose: 100 mls/hr Metronidazole 250 mg/ (Miscellaneous) 50 mls @ 50 mls/hr IVPB Q8 [facility]; Protocol Insulin Human Regular (Humulin R) 0 units SC ACHS [facility]; Protocol Last Admin: 09/03/18 16:30 Dose: Not Given Lactulose (Enulose) 10 gm PO HS [facility] Last Admin: 09/02/18 21:45 Dose: Not Given Metformin HCl (Glucophage) 1,000 mg PO BIDWM [facility] Last Admin: 09/03/18 17:39 Dose: 1,000 mg Naproxen (Naproxen) 500 mg PO Q12 [facility] Last Admin: 09/03/18 09:50 Dose: 500 mg Ondansetron HCl (Zofran Inj) 4 mg IVP Q6 PRN PRN Reason: Nausea/Vomiting Oxycodone/Acetaminophen (Percocet 5/325 Mg Tab) 1 tab PO Q4 PRN PRN Reason: Pain, moderate (4-7) Stop: 09/04/18 11:56 Pantoprazole Sodium (Protonix Ec Tab) 40 mg PO DAILY [facility] Last Admin: 09/03/18 09:57 Dose: 40 mg Potassium Chloride (K-Dur 20 Meq Er Tab) 20 meq PO BID [facility] Last Admin: 09/03/18 09:50 Dose: 20 meq Povidone Iodine (Betadine 10% Topical Soln) 10 ml TOP Q12H [facility] Last Admin: 09/03/18 10:00 Dose: 1 unit Sitagliptin Phosphate (Januvia) 100 mg PO DAILY [facility] Last Admin: 09/03/18 09:49 Dose: 100 mg - Labs Labs: 08/31/18 07:15 08/31/18 07:15 Assessment and Plan (1) Abscess Status: Acute (2) Acute epididymitis Status: Acute (3) Cellulitis Status: Acute (4) Diabetes mellitus, new onset Status: Acute
[2018-09-03] MEDS: Lactulose 10 gm/15 ml Syrup PO SCH (21:14)
[2018-09-04] MEDS: metroNIDAZOLE 500mg/100ml NS 250 MG in Premixed IV 1 EA IVPB SCH ×3 (01:44→16:57)
[2018-09-04] MEDS: Aztreonam 1 GM in Sodium Chloride 0.9% 100 ML IVPB SCH ×3 (01:53→16:57)
--- NOTE | 2018-09-04 01:59 | CP.PCM.PN ---
Subjective - Date & Time of Evaluation Date of Evaluation: 09/02/18 Time of Evaluation: 11:00 - Subjective Subjective: Pt seen and assessed at bedside. Reports scrotal wound drainage site is improving; skin is healing. Afebrile and currently receiving IV ABX. Subjective Review of Systems: reviewed and no additional remarkable complaints except occasional scrotal pain and yellow-green drainage. Objective Vital Signs Stable. Appears: Uncomfortable, No Acute Distress. Head Exam: NORMAL INSPECTION, normocephalic. Eye Exam: Normal appearance, PERRLA, EOMI. Respiratory Exam: NORMAL BREATHING PATTERN, breath sounds clear bilaterally. Cardiovascular Exam: +S1, +S2. RRR. GI & Abdominal Exam: Soft, non-tender, non-distended. Neurological Exam: Alert, Awake, Oriented x3. Psychiatric exam: Normal Affect, Normal Mood. Skin Exam: Normal Color, Warm, Dry. Assessment/Impression/Plan: 1.) Scrotal Abscess/Epididymitis -On Azactam and Flagyl. -Monitor for leukocytosis. -Keep scrotal incision area clean, monitor for s/s infection. -consults appreciated input. Objective - Vital Signs/Intake and Output Vital Signs (last 24 hours): Temp Pulse Resp BP Pulse Ox 98.3 F 83 20 107/68 98 09/03/18 19:55 09/03/18 19:55 09/03/18 19:55 09/03/18 19:55 09/03/18 19:55 - Medications Medications: Current Medications Dextrose (Dextrose 50% Inj) 50 ml IVP PRN PRN PRN Reason: Hypoglycemia Glucagon (Glucagen Diagnostic Kit) 1 mg IM PRN PRN PRN Reason: Hypoglycemia Aztreonam 1 gm/ Sodium (Chloride) 100 mls @ 100 mls/hr IVPB Q8 [facility]; Protocol Last Admin: 09/03/18 17:37 Dose: 100 mls/hr Metronidazole 250 mg/ (Miscellaneous) 50 mls @ 50 mls/hr IVPB Q8 [facility]; Protocol Last Admin: 09/04/18 01:44 Dose: 50 mls/hr Insulin Human Regular (Humulin R) 0 units SC ACHS [facility]; Protocol Last Admin: 09/03/18 21:14 Dose: Not Given Lactulose (Enulose) 10 gm PO HS [facility] Last Admin: 09/03/18 21:14 Dose: Not Given Metformin HCl (Glucophage) 1,000 mg PO BIDWM [facility] Last Admin: 09/03/18 17:39 Dose: 1,000 mg Naproxen (Naproxen) 500 mg PO Q12 [facility] Last Admin: 09/03/18 21:10 Dose: 500 mg Ondansetron HCl (Zofran Inj) 4 mg IVP Q6 PRN PRN Reason: Nausea/Vomiting Oxycodone/Acetaminophen (Percocet 5/325 Mg Tab) 1 tab PO Q4 PRN PRN Reason: Pain, moderate (4-7) Stop: 09/04/18 11:56 Pantoprazole Sodium (Protonix Ec Tab) 40 mg PO DAILY [facility] Last Admin: 09/03/18 09:57 Dose: 40 mg Potassium Chloride (K-Dur 20 Meq Er Tab) 20 meq PO BID [facility] Last Admin: 09/03/18 19:40 Dose: 20 meq Povidone Iodine (Betadine 10% Topical Soln) 10 ml TOP Q12H [facility] Last Admin: 09/03/18 21:12 Dose: 10 units Sitagliptin Phosphate (Januvia) 100 mg PO DAILY [facility] Last Admin: 09/03/18 09:49 Dose: 100 mg - Labs Labs: 08/31/18 07:15 08/31/18 07:15 Assessment and Plan (1) Acute epididymitis Status: Acute (2) Scrotal abscess Status: Acute
[2018-09-04] MEDS: Insulin Regular 100 units/ml SC SCH ×4 (06:38→22:00)
[2018-09-04] MEDS: Naproxen 500 MG TAB PO SCH ×2 (09:31→22:03)
[2018-09-04] MEDS: Potassium Chloride 20 mEq ER Tab PO SCH ×2 (09:32→16:58)
[2018-09-04] MEDS: Pantoprazole 40 mg EC Tab PO SCH (09:32)
[2018-09-04] MEDS: Povidone Iodine Topical 10% Sol TOP SCH ×2 (09:33→23:00)
--- NOTE | 2018-09-04 12:58 | CP.PCM.PN ---
Subjective - Date & Time of Evaluation Date of Evaluation: 09/04/18 Time of Evaluation: 08:00 - Subjective Subjective: improving slowly possible d/c on PO Levofloxacin for [address] Arenas Objective - Vital Signs/Intake and Output Vital Signs (last 24 hours): Temp Pulse Resp BP Pulse Ox 97.8 F 81 19 108/69 99 09/04/18 10:00 09/04/18 10:00 09/04/18 10:00 09/04/18 10:00 09/04/18 10:00 - Medications Medications: Current Medications Dextrose (Dextrose 50% Inj) 50 ml IVP PRN PRN PRN Reason: Hypoglycemia Glucagon (Glucagen Diagnostic Kit) 1 mg IM PRN PRN PRN Reason: Hypoglycemia Aztreonam 1 gm/ Sodium (Chloride) 100 mls @ 100 mls/hr IVPB Q8 [facility]; Protocol Last Admin: 09/04/18 09:31 Dose: 100 mls/hr Metronidazole 250 mg/ (Miscellaneous) 50 mls @ 50 mls/hr IVPB Q8 [facility]; Protocol Last Admin: 09/04/18 09:31 Dose: 50 mls/hr Insulin Human Regular (Humulin R) 0 units SC ACHS [facility]; Protocol Last Admin: 09/04/18 12:18 Dose: Not Given Lactulose (Enulose) 10 gm PO HS [facility] Last Admin: 09/03/18 21:14 Dose: Not Given Metformin HCl (Glucophage) 1,000 mg PO BIDWM [facility] Last Admin: 09/04/18 09:32 Dose: 1,000 mg Naproxen (Naproxen) 500 mg PO Q12 [facility] Last Admin: 09/04/18 09:31 Dose: 500 mg Ondansetron HCl (Zofran Inj) 4 mg IVP Q6 PRN PRN Reason: Nausea/Vomiting Pantoprazole Sodium (Protonix Ec Tab) 40 mg PO DAILY [facility] Last Admin: 09/04/18 09:32 Dose: 40 mg Potassium Chloride (K-Dur 20 Meq Er Tab) 20 meq PO BID [facility] Last Admin: 09/04/18 09:32 Dose: 20 meq Povidone Iodine (Betadine 10% Topical Soln) 10 ml TOP Q12H [facility] Last Admin: 09/04/18 09:33 Dose: 1 units Sitagliptin Phosphate (Januvia) 100 mg PO DAILY [facility] Last Admin: 09/04/18 09:32 Dose: 100 mg - Labs Labs: 08/31/18 07:15 08/31/18 07:15 - Constitutional Appears: Chronically Ill - Head Exam Head Exam: NORMOCEPHALIC - Eye Exam Eye Exam: absent: Scleral icterus - ENT Exam ENT Exam: Mucous Membranes Dry - Neck Exam Neck Exam: absent: Lymphadenopathy - Respiratory Exam Respiratory Exam: Decreased Breath Sounds - Cardiovascular Exam Cardiovascular Exam: REGULAR RHYTHM - GI/Abdominal Exam GI & Abdominal Exam: Distended, Soft. absent: Tenderness - Rectal Exam Rectal Exam: Deferred - Exam Exam: Scrotal Swelling - Extremities Exam Extremities Exam: absent: Pedal Edema - Back Exam Back Exam: absent: CVA tenderness (L), CVA tenderness (R) - Neurological Exam Neurological Exam: Alert, Awake, CN II-XII Intact, Normal Gait, Oriented x3. absent: Motor Sensory Deficit - Psychiatric Exam Psychiatric exam: Depressed - Skin Skin Exam: Dry, Intact Assessment and Plan (1) Abscess Status: Acute (2) Acute epididymitis Status: Acute (3) Cellulitis Status: Acute (4) Cellulitis of scrotum Status: Acute (5) Diabetes mellitus, new onset Status: Acute (6) Hyperglycemia Status: Acute (7) Scrotal abscess Status: Acute - Assessment and Plan (Free Text) Assessment: possible d/c on PO Levofloxacin for [address] Arenas
[2018-09-04 16:38] VITALS: RESP 20
[2018-09-04] MEDS: Lactulose 10 gm/15 ml Syrup PO SCH (22:05)
[2018-09-05] MEDS: Insulin Regular 100 units/ml SC SCH ×2 (07:00→12:06)
[2018-09-05 08:54] VITALS: BP 112/56; PULSE 72; TEMP 98; O2SAT 99
[2018-09-05] MEDS: Potassium Chloride 20 mEq ER Tab PO SCH (08:56)
[2018-09-05] MEDS: Naproxen 500 MG TAB PO SCH (08:57)
[2018-09-05] MEDS: Povidone Iodine Topical 10% Sol TOP SCH (08:57)
[2018-09-05] MEDS: Pantoprazole 40 mg EC Tab PO SCH (08:57)
--- NOTE | 2018-09-05 12:55 | CP.PCM.PN ---
Subjective - Date & Time of Evaluation Date of Evaluation: 09/01/18 Time of Evaluation: 11:00 - Subjective Subjective: Patient is doing a lot better. On IV antibiotics. Has no fever Still with elevated FBS , Objective - Vital Signs/Intake and Output Vital Signs (last 24 hours): Temp Pulse Resp BP Pulse Ox 98.0 F 72 20 112/56 L 99 09/05/18 08:54 09/05/18 08:54 09/05/18 08:54 09/05/18 08:54 09/05/18 08:54 - Medications Medications: Current Medications Dextrose (Dextrose 50% Inj) 50 ml IVP PRN PRN PRN Reason: Hypoglycemia Glucagon (Glucagen Diagnostic Kit) 1 mg IM PRN PRN PRN Reason: Hypoglycemia Insulin Human Regular (Humulin R) 0 units SC ACHS [facility]; Protocol Last Admin: 09/05/18 12:06 Dose: 1 unit Lactulose (Enulose) 10 gm PO HS [facility] Last Admin: 09/04/18 22:05 Dose: Not Given Metformin HCl (Glucophage) 1,000 mg PO BIDWM [facility] Last Admin: 09/05/18 08:56 Dose: 1,000 mg Naproxen (Naproxen) 500 mg PO Q12 [facility] Last Admin: 09/05/18 08:57 Dose: 500 mg Ondansetron HCl (Zofran Inj) 4 mg IVP Q6 PRN PRN Reason: Nausea/Vomiting Pantoprazole Sodium (Protonix Ec Tab) 40 mg PO DAILY [facility] Last Admin: 09/05/18 08:57 Dose: 40 mg Potassium Chloride (K-Dur 20 Meq Er Tab) 20 meq PO BID [facility] Last Admin: 09/05/18 08:56 Dose: 20 meq Povidone Iodine (Betadine 10% Topical Soln) 10 ml TOP Q12H [facility] Last Admin: 09/05/18 08:57 Dose: 1 units Sitagliptin Phosphate (Januvia) 100 mg PO DAILY [facility] Last Admin: 09/05/18 08:56 Dose: 100 mg - Labs Labs: 08/31/18 07:15 08/31/18 07:15 - Head Exam Head Exam: NORMAL INSPECTION - Eye Exam Eye Exam: Normal appearance - ENT Exam ENT Exam: Mucous Membranes Moist - Respiratory Exam Respiratory Exam: Clear to Ausculation Bilateral - Cardiovascular Exam Cardiovascular Exam: REGULAR RHYTHM - GI/Abdominal Exam GI & Abdominal Exam: Normal Bowel Sounds - Neurological Exam Neurological Exam: Awake, Oriented x3 Assessment and Plan (1) Scrotal abscess Status: Acute (2) Diabetes mellitus, new onset Status: Acute - Assessment and Plan (Free Text) Plan: Cont meds Metformin 1000 bid Januvia 100 mg daily Jardiance 25 mg daily
--- NOTE | 2018-09-05 12:58 | CP.PCM.PN ---
Subjective - Date & Time of Evaluation Date of Evaluation: 09/04/18 Time of Evaluation: 11:00 - Subjective Subjective: Patient remains stable On his last day of IV antibiotics. Has no fever FBS still elevated. Objective - Vital Signs/Intake and Output Vital Signs (last 24 hours): Temp Pulse Resp BP Pulse Ox 98.0 F 72 20 112/56 L 99 09/05/18 08:54 09/05/18 08:54 09/05/18 08:54 09/05/18 08:54 09/05/18 08:54 - Medications Medications: Current Medications Dextrose (Dextrose 50% Inj) 50 ml IVP PRN PRN PRN Reason: Hypoglycemia Glucagon (Glucagen Diagnostic Kit) 1 mg IM PRN PRN PRN Reason: Hypoglycemia Insulin Human Regular (Humulin R) 0 units SC [facility]; Protocol Last Admin: 09/05/18 12:06 Dose: 1 unit Lactulose (Enulose) 10 gm PO HS [facility] Last Admin: 09/04/18 22:05 Dose: Not Given Metformin HCl (Glucophage) 1,000 mg PO BIDWM [facility] Last Admin: 09/05/18 08:56 Dose: 1,000 mg Naproxen (Naproxen) 500 mg PO Q12 [facility] Last Admin: 09/05/18 08:57 Dose: 500 mg Ondansetron HCl (Zofran Inj) 4 mg IVP Q6 PRN PRN Reason: Nausea/Vomiting Pantoprazole Sodium (Protonix Ec Tab) 40 mg PO DAILY [facility] Last Admin: 09/05/18 08:57 Dose: 40 mg Potassium Chloride (K-Dur 20 Meq Er Tab) 20 meq PO BID [facility] Last Admin: 09/05/18 08:56 Dose: 20 meq Povidone Iodine (Betadine 10% Topical Soln) 10 ml TOP Q12H [facility] Last Admin: 09/05/18 08:57 Dose: 1 units Sitagliptin Phosphate (Januvia) 100 mg PO DAILY [facility] Last Admin: 09/05/18 08:56 Dose: 100 mg - Labs Labs: 08/31/18 07:15 08/31/18 07:15 - Head Exam Head Exam: NORMAL INSPECTION - Eye Exam Eye Exam: Normal appearance - ENT Exam ENT Exam: Mucous Membranes Moist - Respiratory Exam Respiratory Exam: Clear to Ausculation Bilateral - Cardiovascular Exam Cardiovascular Exam: REGULAR RHYTHM - GI/Abdominal Exam GI & Abdominal Exam: Normal Bowel Sounds - Exam Additional comments: I and D site showed no discharge - Neurological Exam Neurological Exam: Awake, Oriented x3 Assessment and Plan (1) Scrotal abscess Status: Acute (2) Diabetes mellitus, new onset Status: Acute - Assessment and Plan (Free Text) Plan: Cont meds Cont tx Cont Iv antibiotics.
--- NOTE | 2018-09-05 13:00 | CP.PCM.DIS ---
Provider - Provider Date of Admission: 08/28/18 19:04 Attending physician: Rosalino Escalera MD Consults: 08/28/18 19:22 Infectious Disease Consult Routine Comment: Consulting Provider: Rohit Corado Consulting Physician: Rohit Corado Reason for Consult: follow up tcu Urology Consult Routine Comment: Consulting Provider: Kalyani Vogt Consulting Physician: Kalyani Vogt Reason for Consult: follow up tcu Time Spent in preparation of Discharge (in minutes): 30 Diagnosis - Discharge Diagnosis (1) Scrotal abscess Status: Acute (2) Diabetes mellitus, new onset Status: Acute Hospital Course - Lab Results Lab Results: Most Recent Lab Values WBC 8.7 K/uL (4.8-10.8) 08/31/18 07:15 RBC 3.79 Mil/uL (4.40-5.90) L 08/31/18 07:15 Hgb 10.2 g/dL (12.0-18.0) L 08/31/18 07:15 Hct 30.0 % (35.0-51.0) L 08/31/18 07:15 MCV 79.3 fl (80.0-94.0) L 08/31/18 07:15 MCH 26.9 pg (27.0-31.0) L 08/31/18 07:15 MCHC 33.9 g/dL (33.0-37.0) 08/31/18 07:15 RDW 14.2 % (11.5-14.5) 08/31/18 07:15 Plt Count 452 K/uL (130-400) H 08/31/18 07:15 MPV 6.2 fl (7.2-11.7) L 08/31/18 07:15 Neut % (Auto) 66.8 % (50.0-75.0) 08/31/18 07:15 Lymph % (Auto) 24.7 % (20.0-40.0) 08/31/18 07:15 [place] % (Auto) 5.4 % (0.0-10.0) 08/31/18 07:15 Eos % (Auto) 2.7 % (0.0-4.0) 08/31/18 07:15 Baso % (Auto) 0.4 % (0.0-2.0) 08/31/18 07:15 Neut # (Auto) 5.8 K/uL (1.8-7.0) 08/31/18 07:15 Lymph # (Auto) 2.2 K/uL (1.0-4.3) 08/31/18 07:15 [place] # (Auto) 0.5 K/uL (0.0-0.8) 08/31/18 07:15 Eos # (Auto) 0.2 K/uL (0.0-0.7) 08/31/18 07:15 Baso # (Auto) 0.0 K/uL (0.0-0.2) 08/31/18 07:15 Sodium 138 mmol/l (132-148) 08/31/18 07:15 Potassium 3.9 MMOL/L (3.6-5.0) 08/31/18 07:15 Chloride 102 mmol/L (98-107) 08/31/18 07:15 Carbon Dioxide 28 mmol/L (22-30) 08/31/18 07:15 Anion Gap 12 (10-20) 08/31/18 07:15 BUN 14 mg/dl (9-20) 08/31/18 07:15 Creatinine 0.7 mg/dl (0.8-1.5) L 08/31/18 07:15 Est GFR ( Amer) > 60 08/31/18 07:15 Est GFR (Non-Af Amer) > 60 08/31/18 07:15 POC Glucose (mg/dL) 201 mg/dL (65-110) H 09/05/18 10:39 Random Glucose 102 mg/dL (75-110) 08/31/18 07:15 Calcium 8.8 mg/dL (8.4-10.2) 08/31/18 07:15 Total Bilirubin 0.3 mg/dl (0.2-1.3) 08/31/18 07:15 AST 38 U/L (17-59) 08/31/18 07:15 ALT 52 U/L (21-72) 08/31/18 07:15 Alkaline Phosphatase 100 U/L (38-126) 08/31/18 07:15 Total Protein 6.4 G/DL (6.3-8.2) 08/31/18 07:15 Albumin 3.2 g/dL (3.5-5.0) L 08/31/18 07:15 Globulin 3.2 gm/dL (2.2-3.9) 08/31/18 07:15 Albumin/Globulin Ratio 1.0 (1.0-2.1) 08/31/18 07:15 - Hospital Course Hospital Course: This is a 33 y/o male newly diagnosed to have DM 2 was admitted for continuation of IV antibiotics after I and D of scrotal abscess. Post op period was unremarkable Had no problems with current meds He responded well to po hypoglycemics and was sent home in stable condition on Levaquin 500 mg po OD x 10 days Bactroban cream and Metformin 1000 bid januvia 100 mg daily and Jardiance 25 mg daily He was advised about wound care, He will follow up in my office on next week. Discharge Exam - Head Exam Head Exam: NORMAL INSPECTION - Eye Exam Eye Exam: Normal appearance - Respiratory Exam Respiratory Exam: NORMAL BREATHING PATTERN - Cardiovascular Exam Cardiovascular Exam: REGULAR RHYTHM - GI/Abdominal Exam GI & Abdominal Exam: Normal Bowel Sounds - Exam Additional comments: I and D site wound clean with minimal drainage. - Neurological Exam Neurological exam: CN II-XII Intact - Psychiatric Exam Psychiatric exam: Normal Mood Discharge Plan - Discharge Medications Prescriptions: MetFORMIN [glucoPHAGE] 1,000 mg PO BIDWM #60 tab MetFORMIN [glucoPHAGE] 1,000 mg PO BIDWM #60 tab SITagliptin [Januvia] 100 mg PO DAILY #30 tab SITagliptin [Januvia] 100 mg PO DAILY #30 tab Empagliflozin [Jardiance] 25 mg PO DAILY #14 tablet Naproxen 500 mg PO Q12 #60 tab Naproxen 500 mg PO Q12 #60 tab - Follow Up Plan Condition: GOOD Disposition: HOME/ ROUTINE Instructions: Hydrocele/Varicocele (DC) Additional Instructions: Rx given advised follow up next week.
== END 2018-09-05 14:00 | disposition home or self-care (01) | DRG 728 ==
LOC: H.TCU 08-28 19:04
PROVIDERS: ADMIT Family Medicine; ATTEND Family Medicine
DX: N49.2 Inflammatory disorders of scrotum (principal); N45.1 Epididymitis; Z87.891 Personal history of nicotine dependence; J45.909 Unspecified asthma, uncomplicated; E11.65 Type 2 diabetes mellitus with hyperglycemia; B96.1 Klebsiella pneumoniae [K. pneumoniae] as the cause of diseases classified elsewhere; Z88.0 Allergy status to penicillin